=== PATIENT | female | born 1995 | race Two or more races ===

== ENCOUNTER 2018-05-29 14:33 | Inpatient (IN) | payer SELFPAY ==
[~2018-05-29] VITALS: Ht 157.5 cm; Wt 99.8 kg
--- NOTE | 2018-05-29 15:00 | PHYS DOC ---
Adult General Chief Complaint Chief Complaint: ABDOMINAL PAIN HPI HPI Patient is a 23 year old female who presents to the ED today complaining of moderate right upper quadrant abdominal pain as well as epigastric pain that began yesterday and has gotten worse by the time she woke up this morning. Patient is also complaining of nausea with no vomiting. Denies any fever. She states she has been diagnosed with gallstones before. Denies any diarrhea. Denies any chance she is . Review of Systems Review of Systems Constitutional: Denies fever or chills [] Eyes: Denies change in visual acuity, redness, or eye pain [] HENT: Denies nasal congestion or sore throat [] Respiratory: Denies cough or shortness of breath [] Cardiovascular: No additional information not addressed in HPI [] GI: Reports right upper quadrant abdominal pain with nausea, denies vomiting, bloody stools or diarrhea [] : Denies dysuria or hematuria [] Musculoskeletal: Denies back pain or joint pain [] Integument: Denies rash or skin lesions [] Neurologic: Denies headache, focal weakness or sensory changes [] All other systems were reviewed and found to be within normal limits, except as documented in this note. Current Medications Current Medications Current Medications Medications (Trade) Dose Ordered Sig/Mona Start Time Stop Time Status Last Admin Dose Admin Famotidine (Pepcid Vial) 20 mg 1X ONCE 05/29/18 15:30 05/29/18 15:31 DC 05/29/18 15:25 20 MG Fentanyl Citrate (Fentanyl 2ml Vial) 50 mcg 1X ONCE 05/29/18 16:00 05/29/18 16:01 DC 05/29/18 15:59 50 MCG Hydromorphone HCl (Dilaudid) 1 mg 1X ONCE 05/29/18 16:30 05/29/18 16:31 Ondansetron HCl (Zofran) 4 mg 1X ONCE 05/29/18 15:30 05/29/18 15:31 DC 05/29/18 15:25 4 MG Sodium Chloride 1,000 ml @ 1,000 mls/hr 1X ONCE 05/29/18 15:30 05/29/18 16:29 05/29/18 15:26 1,000 MLS/HR Allergies Allergies Allergies Coded Allergies Type Severity Reaction Last Updated Verified No Known Drug Allergies 05/29/18 No Physical Exam Physical Exam Constitutional: Well developed, well nourished, no acute distress, non-toxic appearance. [] HENT: Normocephalic, atraumatic, bilateral external ears normal, oropharynx moist, no oral exudates, nose normal. [] Eyes: PERRLA, EOMI, conjunctiva normal, no discharge. [] Neck: Normal range of motion, no tenderness, supple, no stridor. [] Cardiovascular:Heart rate regular rhythm, no murmur [] Lungs & Thorax: Bilateral breath sounds clear to auscultation [] Abdomen: Bowel sounds normal, soft, moderate epigastric as well as right upper quadrant tenderness with positive Mendes sign, no right lower quadrant tenderness, negative psoas sign, negative obturator sign, patient is guarding her right upper quadrant no masses, no pulsatile masses. [] Skin: Warm, dry, no erythema, no rash. [] Back: No tenderness, no CVA tenderness. [] Extremities: No tenderness, no cyanosis, no clubbing, ROM intact, no edema. [] Neurologic: Alert and oriented X 3, normal motor function, normal sensory function, no focal deficits noted. [] Psychologic: Affect normal, judgement normal, mood normal. [] Current Patient Data Vital Signs Vital Signs Date Time Temp Pulse Resp B/P (MAP) Pulse Ox O2 Delivery O2 Flow Rate FiO2 05/29/18 15:59 22 98 Room Air 05/29/18 15:35 98.6 83 157/74 (101) 98.6 Lab Values Laboratory Tests Test 05/29/18 14:50 05/29/18 15:09 05/29/18 15:35 Urine Collection Type Unknown Urine Color Yellow Urine Clarity Clear Urine pH 5.5 Urine Specific [place] >=1.030 Urine Protein Negative mg/dL (NEG-TRACE) Urine Glucose (UA) Negative mg/dL (NEG) Urine Ketones (Stick) Negative mg/dL (NEG) Urine Blood Small (NEG) Urine Nitrite Negative (NEG) Urine Bilirubin Negative (NEG) Urine Urobilinogen Dipstick 0.2 mg/dL (0.2 mg/dL) Urine Leukocyte Esterase Trace (NEG) Urine RBC 3-5 /HPF (0-2) Urine WBC 1-4 /HPF (0-4) Urine Squamous Epithelial Cells Mod /LPF Urine Bacteria Few /HPF (0-FEW) Urine Mucus Marked /LPF Urine Opiates Screen Neg (NEG) Urine Methadone Screen Neg (NEG) Urine Barbiturates Neg (NEG) Urine Phencyclidine Screen Neg (NEG) Urine Amphetamine/Methamphetamine Neg (NEG) Urine Benzodiazepines Screen Neg (NEG) Urine Cocaine Screen Neg (NEG) Urine Cannabinoids Screen Neg (NEG) Urine Ethyl Alcohol Neg (NEG) POC Urine HCG, Qualitative Hcg negative (Negative) White Blood Count 7.0 x10^3/uL (4.0-11.0) Red Blood Count 4.30 x10^6/uL (3.50-5.40) Hemoglobin 12.0 g/dL (12.0-15.5) Hematocrit 36.7 % (36.0-47.0) Mean Corpuscular Volume 85 fL (79-100) Mean Corpuscular Hemoglobin 28 pg (25-35) Mean Corpuscular Hemoglobin Concent 33 g/dL (31-37) Red Cell Distribution Width 14.1 % (11.5-14.5) Platelet Count 198 x10^3/uL (140-400) Neutrophils (%) (Auto) 65 % (31-73) Lymphocytes (%) (Auto) 27 % (24-48) Monocytes (%) (Auto) 6 % (0-9) Eosinophils (%) (Auto) 1 % (0-3) Basophils (%) (Auto) 1 % (0-3) Neutrophils # (Auto) 4.6 x10^3uL (1.8-7.7) Lymphocytes # (Auto) 1.9 x10^3/uL (1.0-4.8) Monocytes # (Auto) 0.4 x10^3/uL (0.0-1.1) Eosinophils # (Auto) 0.1 x10^3/uL (0.0-0.7) Basophils # (Auto) 0.1 x10^3/uL (0.0-0.2) Sodium Level 143 mmol/L (136-145) Potassium Level 3.6 mmol/L (3.5-5.1) Chloride Level 105 mmol/L (98-107) Carbon Dioxide Level 22 mmol/L (21-32) Anion Gap 16 (6-14) H Blood Urea Nitrogen 9 mg/dL (7-20) Creatinine 0.7 mg/dL (0.6-1.0) Estimated GFR (Cockcroft-Gault) 103.7 BUN/Creatinine Ratio 13 (6-20) Glucose Level 99 mg/dL (70-99) Calcium Level 8.9 mg/dL (8.5-10.1) Total Bilirubin 0.2 mg/dL (0.2-1.0) Aspartate Amino Transferase (AST) 17 U/L (15-37) Alanine Aminotransferase (ALT) 31 U/L (14-59) Alkaline Phosphatase 101 U/L (46-116) Total Protein 7.8 g/dL (6.4-8.2) Albumin 3.7 g/dL (3.4-5.0) Albumin/Globulin Ratio 0.9 (1.0-1.7) L Lipase 128 U/L (73-393) Ethyl Alcohol Level < 10 mg/dL (0-10) Laboratory Tests 05/29/18 15:35 Laboratory Tests 05/29/18 15:35 EKG EKG [] Radiology/Procedures Radiology/Procedures []PROCEDURE: ABDOMEN LTD Limited abdomen ultrasound study of the right upper quadrant Clinical indications: Right upper quadrant abdominal pain. FINDINGS: The pancreas and IVC and abdominal aorta are obscured by overlying bowel gas. There is severe attenuation of sound throughout the liver which may be seen with fatty infiltration of the liver. This limits sonographic evaluation of the liver for focal hepatic masses. The liver measures 18.4 cm in length which is mildly enlarged. Mild biliary sludge is seen within the gallbladder. There is an 11 mm gallstone within the fundus of the gallbladder. No gallbladder wall thickening is seen. The gallbladder is distended measuring up to 12.7 cm in length. The extra hepatic bile duct measures 4.5 mm in caliber which is normal. The length of the right kidney is 12.5 cm. No hydronephrosis or renal mass or perinephric fluid collection is seen on the right side. IMPRESSION: Cholelithiasis and gallbladder distention. Mild hepatomegaly. Fatty infiltration of the liver. Electronically signed by: Jeet Rae MD (05/29/2018 3:42 PM) [facility] DICTATED and SIGNED BY: JEET RAE MD DATE: 05/29/18 1542 Course & Med Decision Making Course & Med Decision Making Pertinent Labs and Imaging studies reviewed. (See chart for details) This is a 23-year-old female patient presenting to the ED today with right upper quadrant abdominal pain that began this yesterday and got worse this morning. CBC CMP lipase with no acute findings, right upper quadrant ultrasound was noted for cholelithiasis and gallbladder distention. Patient has been in moderate pain since arrival to the ED. Consulted with Dr. Hobbs who requested we admit patient under the hospitalist and keep patient nothing by mouth. Spoke with Dr. Benitez who accepted patient for admission. Dragon Disclaimer Dragon Disclaimer This electronic medical record was generated, in whole or in part, using a voice recognition dictation system. Departure Departure Impression: Primary Impression: Cholelithiasis Additional Impression: Intractable abdominal pain Disposition: ADMITTED INPATIENT Condition: STABLE Referrals: GEMINI ASCENCIO MD (PCP) Problem Qualifiers Primary Impression: Cholelithiasis Cholelithiasis location: gallbladder Cholecystitis presence: without cholecystitis Biliary obstruction: without biliary obstruction Qualified Codes: K80.20 - Calculus of gallbladder without cholecystitis without obstruction ANA MATSON TEST PILOT May 29, 2018 15:00
[2018-05-29 15:22] LABS: BILIRUBIN,URINE NEGATIVE (NEG); CLARITY,URINE CLEAR; COLOR,URINE YELLOW; NITRITE,URINE NEGATIVE (NEG); PH,URINE 5.5; PROTEIN,URINE NEGATIVE (NEG-TRACE); UROBILINOGEN,URINE 0.2 mg/dL (0.2 mg/dL)
[2018-05-29] MEDS ORDERED: ONDANSETRON PF 4 MG/2 ML VIAL. IV ONE (15:30)
[2018-05-29] MEDS ORDERED: fentaNYL PF VIAL 100 MCG/2 ML VIAL IV ONE ×2 (15:30→16:00)
[2018-05-29] MEDS ORDERED: IV NORMAL SALINE 1000ML BAG 1,000 ML IV ONE ×2 (15:30→16:30)
[2018-05-29] MEDS ORDERED: FAMOTIDINE 20 MG/2 ML VIAL IVP ONE (15:30)
[2018-05-29 15:32] LABS: BARBITURATES NEG (NEG); BENZODIAZEPINES NEG (NEG); CANNABINOIDS NEG (NEG); COCAINE NEG (NEG); METHADONE NEG (NEG); OPIATES NEG (NEG); PHENCYCLIDINE NEG (NEG)
[2018-05-29 15:33] LABS: SQUAMOUS EPITHELIAL CELL,UR MOD /LPF
[2018-05-29 15:34] LABS: BACTERIA,URINE FEW /HPF (0-FEW)
[2018-05-29 15:36] LABS: AMPHETAMINE/METHAMPHETAMINE NEG (NEG)
--- NOTE | 2018-05-29 15:45 | RAD ---
Limited abdomen ultrasound study of the right upper quadrant Clinical indications: Right upper quadrant abdominal pain. FINDINGS: The pancreas and IVC and abdominal aorta are obscured by overlying bowel gas. There is severe attenuation of sound throughout the liver which may be seen with fatty infiltration of the liver. This limits sonographic evaluation of the liver for focal hepatic masses. The liver measures 18.4 cm in length which is mildly enlarged. Mild biliary sludge is seen within the gallbladder. There is an 11 mm gallstone within the fundus of the gallbladder. No gallbladder wall thickening is seen. The gallbladder is distended measuring up to 12.7 cm in length. The extra hepatic bile duct measures 4.5 mm in caliber which is normal. The length of the right kidney is 12.5 cm. No hydronephrosis or renal mass or perinephric fluid collection is seen on the right side. IMPRESSION: Cholelithiasis and gallbladder distention. Mild hepatomegaly. Fatty infiltration of the liver. Electronically signed by: Clyde Rae MD (05/29/2018 3:42 PM) [facility]
[2018-05-29 15:46] LABS: BASO # 0.1 x10^3/uL (0.0-0.2); BASO % 1 % (0-3); EOS # 0.1 x10^3/uL (0.0-0.7); EOS % 1 % (0-3); HEMATOCRIT 36.7 % (36.0-47.0); LYMPH # 1.9 x10^3/uL (1.0-4.8); LYMPH % 27 % (24-48); MEAN CORPUSCULAR HEMOGLOBIN 28 pg (25-35); MEAN CORPUSCULAR HGB CONC 33 g/dL (31-37); MEAN CORPUSCULAR VOLUME 85 fL (79-100); MONO # 0.4 x10^3/uL (0.0-1.1); MONO % 6 % (0-9); NEUT # 4.6 x10^3uL (1.8-7.7); NEUT % 65 % (31-73); PLATELET COUNT 198 x10^3/uL (140-400); RED CELL DISTRIBUTION WIDTH 14.1 % (11.5-14.5)
[2018-05-29 15:52] LABS: CALCIUM 8.9 mg/dL (8.5-10.1); CREATININE 0.7 mg/dL (0.6-1.0); GFR 103.7; POTASSIUM 3.6 mmol/L (3.5-5.1)
[2018-05-29 15:59] LABS: ALBUMIN 3.7 g/dL (3.4-5.0); ALBUMIN/GLOBULIN RATIO 0.9 (1.0-1.7); TOTAL BILIRUBIN 0.2 mg/dL (0.2-1.0); TOTAL PROTEIN 7.8 g/dL (6.4-8.2)
[2018-05-29] MEDS ORDERED: ACETAMINOPHEN 650 MG SUPP.RECT. PR PRN (16:30)
[2018-05-29] MEDS ORDERED: ONDANSETRON PF 4 MG/2 ML VIAL. IV PRN (16:30)
[2018-05-29] MEDS ORDERED: cloNIDine HCL 0.1 MG TABLET PO PRN (16:30)
[2018-05-29] MEDS ORDERED: HYDROmorphone 2 MG/ML VIAL IV ONE (16:30)
[2018-05-29] MEDS ORDERED: diphenhydrAMINE 50 MG/ML VIAL IVP PRN (16:30)
[2018-05-29] MEDS ORDERED: ZOLPIDEM 5 MG TABLET. PO PRN (16:30)
[2018-05-29] MEDS ORDERED: ALBUTEROL SULFATE 2.5 MG/3 ML NEBU. NEB PRN (16:30)
[2018-05-29] MEDS ORDERED: DOCUSATE SODIUM 100 MG CAPSULE. PO PRN (16:30)
[2018-05-29] MEDS ORDERED: ACETAMINOPHEN 325 MG TABLET. PO PRN (16:30)
[2018-05-29] MEDS: IPRATRPIUM/ALBUTEROL 0.5/2.5MG 3 ML NEBU. NEB SCH ×2 (16:49→20:18)
--- NOTE | 2018-05-29 17:51 | PDOC1 ---
History and Physical Date of Admission Date of Admission 05/29/2018 Identification/Chief Complaint Chief Complaint edinson limon Problems: (1) Intractable abdominal pain (2) Cholelithiasis Source Source: Chart review, Patient History of Present Illness History of Present Illness Patient is a 23 luiz rold female wtih no apst medical history except for cholelithiasis which was diagnosed about 3 months prior to her admission. Sh ecomes today with a 24hour history fo right upper quadrant pain with radiation to the back, sharp in nature which started at a 2 out of 10 intnessity and has progressed to 10 out of 10 intensity, no fever or chills reported, no nausea or vomiting reported. She denies dietary transgression, she was found to have distended gallbladder on US reason why we were asked to see patient in consultation. She is tender upon palpation, Mendes is equivocal. She tamayo snot have rebound or guarding at the time of my evaluation, plan of care discussed in detail . Current Problem List Problem List Problems Medical Problems: (1) Cholelithiasis Status: Acute (2) Intractable abdominal pain Status: Acute Current Medications Current Medications Current Medications Medications (Trade) Dose Ordered Sig/Mona Start Time Stop Time Status Last Admin Dose Admin Acetaminophen (Tylenol Supp) 650 mg PRN Q4HRS PRN 05/29/18 16:30 Acetaminophen (Tylenol) 650 mg PRN Q4HRS PRN 05/29/18 16:30 Albuterol Sulfate (Ventolin Neb Soln) 2.5 mg PRN Q4HRS PRN 05/29/18 16:30 Albuterol/ Ipratropium (Duoneb) 3 ml Q4H 05/29/18 16:30 05/29/18 16:49 3 ML Cefazolin Sodium/ Dextrose 50 ml @ 100 mls/hr 1X PREOP 05/29/18 17:15 Clonidine HCl (Catapres) 0.1 mg PRN Q6HRS PRN 05/29/18 16:30 Diphenhydramine HCl (Benadryl) 25 mg PRN Q4HRS PRN 05/29/18 16:30 Docusate Sodium (Colace) 100 mg PRN BID PRN 05/29/18 16:30 Famotidine (Pepcid Vial) 20 mg 1X ONCE 05/29/18 15:30 05/29/18 15:31 DC 05/29/18 15:25 20 MG Fentanyl Citrate (Fentanyl 2ml Vial) 50 mcg 1X ONCE 05/29/18 16:00 05/29/18 16:01 DC 05/29/18 15:59 50 MCG Hydromorphone HCl (Dilaudid) 1 mg 1X ONCE 05/29/18 16:30 05/29/18 16:31 DC 05/29/18 16:33 1 MG Lorazepam (Ativan) 2 mg PRN Q4HRS PRN 05/29/18 16:30 Morphine Sulfate (Morphine Sulfate) 2 mg PRN Q3HRS PRN 05/29/18 16:30 Ondansetron HCl (Zofran) 4 mg PRN Q4HRS PRN 05/29/18 16:30 Sodium Chloride 1,000 ml @ 100 mls/hr 1X ONCE 05/29/18 16:30 05/30/18 02:29 05/29/18 16:30 100 MLS/HR Zolpidem Tartrate (Ambien) 5 mg PRN QHS PRN 05/29/18 16:30 Allergies Allergies Allergies Coded Allergies Type Severity Reaction Last Updated Verified No Known Drug Allergies 05/29/18 No ROS Review of System CONSTITUTIONAL: No fever or chills EYES: No recent changes SKIN: No rash or itching CARDIOVASCULAR: No chest pain, syncope, palpitations, or edema RESPIRATORY: No SOB or cough GASTROINTESTINAL: No nausea, vomiting or abdominal pain NEUROLOGICAL: No headaches or weakness ENDOCRINE: No cold or heat intolerance GENITOURINARY: No urgency or frequency of urination MUSCULOSKELETAL: No back pain or joint pain LYMPHATICS: No enlarged lymph nodes PSYCHIATRIC: No anxiety or depression Physical Exam Physical Exam GEN.: No apparent distress. Alert and oriented. HEENT: Head is normocephalic, atraumatic NECK: Supple. LUNGS: Clear to auscultation. HEART: RRR, S1, S2 present. Peripheral pulses intact ABDOMEN: Soft, nontender. Positive bowel sounds. EXTREMITIES: Without any cyanosis. NEUROLOGIC: Normal speech, normal tone PSYCHIATRIC: Normal affect, normal mood. SKIN: No ulcerations Vitals Vitals Vital Signs Date Time Temp Pulse Resp B/P (MAP) Pulse Ox O2 Delivery O2 Flow Rate FiO2 05/29/18 16:54 99 Room Air 05/29/18 16:34 81 24 140/84 (102) 05/29/18 15:35 98.6 98.6 Labs Labs Laboratory Tests Test 05/29/18 14:50 05/29/18 15:09 05/29/18 15:35 Urine Collection Type Unknown Urine Color Yellow Urine Clarity Clear Urine pH 5.5 Urine Specific [place] >=1.030 Urine Protein Negative mg/dL (NEG-TRACE) Urine Glucose (UA) Negative mg/dL (NEG) Urine Ketones (Stick) Negative mg/dL (NEG) Urine Blood Small (NEG) Urine Nitrite Negative (NEG) Urine Bilirubin Negative (NEG) Urine Urobilinogen Dipstick 0.2 mg/dL (0.2 mg/dL) Urine Leukocyte Esterase Trace (NEG) Urine RBC 3-5 /HPF (0-2) Urine WBC 1-4 /HPF (0-4) Urine Squamous Epithelial Cells Mod /LPF Urine Bacteria Few /HPF (0-FEW) Urine Mucus Marked /LPF Urine Opiates Screen Neg (NEG) Urine Methadone Screen Neg (NEG) Urine Barbiturates Neg (NEG) Urine Phencyclidine Screen Neg (NEG) Urine Amphetamine/Methamphetamine Neg (NEG) Urine Benzodiazepines Screen Neg (NEG) Urine Cocaine Screen Neg (NEG) Urine Cannabinoids Screen Neg (NEG) Urine Ethyl Alcohol Neg (NEG) Bedside Urine HCG, Qualitative Hcg negative (Negative) White Blood Count 7.0 x10^3/uL (4.0-11.0) Red Blood Count 4.30 x10^6/uL (3.50-5.40) Hemoglobin 12.0 g/dL (12.0-15.5) Hematocrit 36.7 % (36.0-47.0) Mean Corpuscular Volume 85 fL (79-100) Mean Corpuscular Hemoglobin 28 pg (25-35) Mean Corpuscular Hemoglobin Concent 33 g/dL (31-37) Red Cell Distribution Width 14.1 % (11.5-14.5) Platelet Count 198 x10^3/uL (140-400) Neutrophils (%) (Auto) 65 % (31-73) Lymphocytes (%) (Auto) 27 % (24-48) Monocytes (%) (Auto) 6 % (0-9) Eosinophils (%) (Auto) 1 % (0-3) Basophils (%) (Auto) 1 % (0-3) Neutrophils # (Auto) 4.6 x10^3uL (1.8-7.7) Lymphocytes # (Auto) 1.9 x10^3/uL (1.0-4.8) Monocytes # (Auto) 0.4 x10^3/uL (0.0-1.1) Eosinophils # (Auto) 0.1 x10^3/uL (0.0-0.7) Basophils # (Auto) 0.1 x10^3/uL (0.0-0.2) Sodium Level 143 mmol/L (136-145) Potassium Level 3.6 mmol/L (3.5-5.1) Chloride Level 105 mmol/L (98-107) Carbon Dioxide Level 22 mmol/L (21-32) Anion Gap 16 (6-14) Blood Urea Nitrogen 9 mg/dL (7-20) Creatinine 0.7 mg/dL (0.6-1.0) Estimated GFR (Cockcroft-Gault) 103.7 BUN/Creatinine Ratio 13 (6-20) Glucose Level 99 mg/dL (70-99) Calcium Level 8.9 mg/dL (8.5-10.1) Total Bilirubin 0.2 mg/dL (0.2-1.0) Aspartate Amino Transf (AST/SGOT) 17 U/L (15-37) Alanine Aminotransferase (ALT/SGPT) 31 U/L (14-59) Alkaline Phosphatase 101 U/L (46-116) Total Protein 7.8 g/dL (6.4-8.2) Albumin 3.7 g/dL (3.4-5.0) Albumin/Globulin Ratio 0.9 (1.0-1.7) Lipase 128 U/L (73-393) Ethyl Alcohol Level < 10 mg/dL (0-10) Laboratory Tests Test 05/29/18 14:50 05/29/18 15:09 05/29/18 15:35 Urine Collection Type Unknown Urine Color Yellow Urine Clarity Clear Urine pH 5.5 Urine Specific [place] >=1.030 Urine Protein Negative mg/dL (NEG-TRACE) Urine Glucose (UA) Negative mg/dL (NEG) Urine Ketones (Stick) Negative mg/dL (NEG) Urine Blood Small (NEG) Urine Nitrite Negative (NEG) Urine Bilirubin Negative (NEG) Urine Urobilinogen Dipstick 0.2 mg/dL (0.2 mg/dL) Urine Leukocyte Esterase Trace (NEG) Urine RBC 3-5 /HPF (0-2) Urine WBC 1-4 /HPF (0-4) Urine Squamous Epithelial Cells Mod /LPF Urine Bacteria Few /HPF (0-FEW) Urine Mucus Marked /LPF Urine Opiates Screen Neg (NEG) Urine Methadone Screen Neg (NEG) Urine Barbiturates Neg (NEG) Urine Phencyclidine Screen Neg (NEG) Urine Amphetamine/Methamphetamine Neg (NEG) Urine Benzodiazepines Screen Neg (NEG) Urine Cocaine Screen Neg (NEG) Urine Cannabinoids Screen Neg (NEG) Urine Ethyl Alcohol Neg (NEG) Bedside Urine HCG, Qualitative Hcg negative (Negative) White Blood Count 7.0 x10^3/uL (4.0-11.0) Red Blood Count 4.30 x10^6/uL (3.50-5.40) Hemoglobin 12.0 g/dL (12.0-15.5) Hematocrit 36.7 % (36.0-47.0) Mean Corpuscular Volume 85 fL (79-100) Mean Corpuscular Hemoglobin 28 pg (25-35) Mean Corpuscular Hemoglobin Concent 33 g/dL (31-37) Red Cell Distribution Width 14.1 % (11.5-14.5) Platelet Count 198 x10^3/uL (140-400) Neutrophils (%) (Auto) 65 % (31-73) Lymphocytes (%) (Auto) 27 % (24-48) Monocytes (%) (Auto) 6 % (0-9) Eosinophils (%) (Auto) 1 % (0-3) Basophils (%) (Auto) 1 % (0-3) Neutrophils # (Auto) 4.6 x10^3uL (1.8-7.7) Lymphocytes # (Auto) 1.9 x10^3/uL (1.0-4.8) Monocytes # (Auto) 0.4 x10^3/uL (0.0-1.1) Eosinophils # (Auto) 0.1 x10^3/uL (0.0-0.7) Basophils # (Auto) 0.1 x10^3/uL (0.0-0.2) Sodium Level 143 mmol/L (136-145) Potassium Level 3.6 mmol/L (3.5-5.1) Chloride Level 105 mmol/L (98-107) Carbon Dioxide Level 22 mmol/L (21-32) Anion Gap 16 (6-14) Blood Urea Nitrogen 9 mg/dL (7-20) Creatinine 0.7 mg/dL (0.6-1.0) Estimated GFR (Cockcroft-Gault) 103.7 BUN/Creatinine Ratio 13 (6-20) Glucose Level 99 mg/dL (70-99) Calcium Level 8.9 mg/dL (8.5-10.1) Total Bilirubin 0.2 mg/dL (0.2-1.0) Aspartate Amino Transf (AST/SGOT) 17 U/L (15-37) Alanine Aminotransferase (ALT/SGPT) 31 U/L (14-59) Alkaline Phosphatase 101 U/L (46-116) Total Protein 7.8 g/dL (6.4-8.2) Albumin 3.7 g/dL (3.4-5.0) Albumin/Globulin Ratio 0.9 (1.0-1.7) Lipase 128 U/L (73-393) Ethyl Alcohol Level < 10 mg/dL (0-10) VTE Prophylaxis Ordered VTE Prophylaxis Devices: Yes VTE Pharmacological Prophylaxi: No Assessment/Plan Assessment/Plan Abdominal pain secondary to biliary colic Cholelithiasis morbid obesity with bmi of 40 plan; consult surgery keep npo iv fluids pain management dvt prohylaxis: scd and teds Problem Qualifiers (1) Cholelithiasis: Cholelithiasis location: gallbladder Cholecystitis presence: without cholecystitis Biliary obstruction: without biliary obstruction Qualified Codes: K80.20 - Calculus of gallbladder without cholecystitis without obstruction MALIA DEVI MD May 29, 2018 17:51
[2018-05-29] MEDS: MORPHINE SULFATE 2 MG/ML VIAL. IV PRN ×2 (18:45→22:26)
[2018-05-29 19:00] VITALS: BP 149/101
[2018-05-29] MEDS ORDERED: IPRATRPIUM/ALBUTEROL 0.5/2.5MG 3 ML NEBU. NEB PRN (21:00)
[2018-05-29] MEDS ORDERED: MORPHINE SULFATE 2 MG/ML VIAL. IV ONE (21:00)
[2018-05-29] MEDS: IV NORMAL SALINE 1000ML BAG 1,000 ML IV SCH (21:04)
[2018-05-29 23:00] VITALS: BP 135/55
[2018-05-30] VITALS (11 sets, daily range): BP systolic 105–143; BP diastolic 60–83
[2018-05-30] MEDS: MORPHINE SULFATE 2 MG/ML VIAL. IV PRN ×3 (03:32→14:29)
[2018-05-30] MEDS: IV NORMAL SALINE 1000ML BAG 1,000 ML IV SCH ×4 (03:33→22:29)
[2018-05-30 07:59] LABS: BASO % 0 % (0-3); EOS % 0 % (0-3); HEMATOCRIT 36.1 % (36.0-47.0); HEMOGLOBIN 11.9 g/dL (12.0-15.5); LYMPH # 1.3 x10^3/uL (1.0-4.8); LYMPH % 13 % (24-48); MEAN CORPUSCULAR HEMOGLOBIN 28 pg (25-35); MEAN CORPUSCULAR HGB CONC 33 g/dL (31-37); MEAN CORPUSCULAR VOLUME 86 fL (79-100); MONO # 0.5 x10^3/uL (0.0-1.1); MONO % 5 % (0-9); NEUT # 7.9 x10^3uL (1.8-7.7); NEUT % 81 % (31-73); PLATELET COUNT 182 x10^3/uL (140-400); RED BLOOD COUNT 4.22 x10^6/uL (3.50-5.40); RED CELL DISTRIBUTION WIDTH 13.9 % (11.5-14.5); WHITE BLOOD COUNT 9.7 x10^3/uL (4.0-11.0)
[2018-05-30] MEDS ORDERED: HYDROmorphone 2 MG/ML VIAL IV ONE (08:00)
[2018-05-30] MEDS ORDERED: MORPHINE SULFATE 2 MG/ML VIAL. IV PRN ×2 (08:00→10:00)
--- NOTE | 2018-05-30 08:19 | PDOC2 ---
ZEB CARRION Didi LAST TURNER 05/30/18 0819: CONSULT Date of Consult Date of Consult DATE: 05/30/18 TIME: 08:15 Reason for Consult Reason for Consult: cholelithiasis Referring Physician Referring Physician: ER Identification/Chief Complaint Chief Complaint abdominal pain Source Source: Chart review, Patient History of Present Illness Reason for Visit: Reports RUQ pain that radiates to back, started 2 days ago. Yesterday became significantly worse. Associated nausea and emesis. Similar symptoms prior, however not this severe. Past Medical History Past Medical History no pertinent medical hx Past Surgical History Past Surgical History: No pertinent history Family History Family History: Other (noncontributory to current illness ) Social History No ALCOHOL: none Drugs: None Lives: with Family Current Problem List Problem List Problems Medical Problems: (1) Cholelithiasis Status: Acute (2) Intractable abdominal pain Status: Acute Current Medications Current Medications Current Medications Sodium Chloride 1,000 ml @ 1,000 mls/hr 1X ONCE IV Last administered on 15:26; Start 05/29/18 at 15:30; Stop 05/29/18 at 16:29; Status DC Famotidine (Pepcid Vial) 20 mg 1X ONCE IVP Last administered on 05/29/18at 15: 25; Start 05/29/18 at 15:30; Stop 05/29/18 at 15:31; Status DC Ondansetron HCl (Zofran) 4 mg 1X ONCE IV Last administered on 05/29/18at 15:25 ; Start 05/29/18 at 15:30; Stop 05/29/18 at 15:31; Status DC Fentanyl Citrate (Fentanyl 2ml Vial) 50 mcg 1X ONCE IV Last administered on 12/07at 15:26; Start 05/29/18 at 15:30; Stop 05/29/18 at 15:31; Status DC Fentanyl Citrate (Fentanyl 2ml Vial) 50 mcg 1X ONCE IV Last administered on 12/07at 15:59; Start 05/29/18 at 16:00; Stop 05/29/18 at 16:01; Status DC Hydromorphone HCl (Dilaudid) 1 mg 1X ONCE IV Last administered on 05/29/18at 16 :33; Start 05/29/18 at 16:30; Stop 05/29/18 at 16:31; Status DC Sodium Chloride 1,000 ml @ 100 mls/hr Q10H IV Last administered on 05/30/18 03:33; Start 05/29/18 at 16:29 Ondansetron HCl (Zofran) 4 mg PRN Q4HRS PRN IV NAUSEA/VOMITING Last administered on 05/29/18 18:45; Start 05/29/18 at 16:30 Zolpidem Tartrate (Ambien) 5 mg PRN QHS PRN PO INSOMNIA Last administered on 23:53; Start 05/29/18 at 16:30 Acetaminophen (Tylenol) 650 mg PRN Q4HRS PRN PO TEMP OVER 100.4F OR MILD PAIN Last administered on 05/29/18 19:45; Start 05/29/18 at 16:30 Acetaminophen (Tylenol Supp) 650 mg PRN Q4HRS PRN OK TEMP OVER 100.4F OR MILD PAIN; Start 05/29/18 at 16:30 Clonidine HCl (Catapres) 0.1 mg PRN Q6HRS PRN PO SBP>160 OR DBP>90; Start 05/29 at 16:30 Diphenhydramine HCl (Benadryl) 25 mg PRN Q4HRS PRN IVP ITCHING; Start 05/29/18 at 16:30 Docusate Sodium (Colace) 100 mg PRN BID PRN PO CONSTIPATION; Start 05/29/18 at 16:30 Albuterol Sulfate (Ventolin Neb Soln) 2.5 mg PRN Q4HRS PRN NEB SHORTNESS OF BREATH; Start 05/29/18 at 16:30 Albuterol/ Ipratropium (Duoneb) 3 ml Q4H NEB Last administered on 05/29/18 16: 49; Start 05/29/18 at 16:30; Stop 05/29/18 at 20:56; Status DC Lorazepam (Ativan) 2 mg PRN Q4HRS PRN IV ANXIETY / AGITATION Last administered on 05/29/18 23:54; Start 05/29/18 at 16:30 Morphine Sulfate (Morphine Sulfate) 2 mg PRN Q3HRS PRN IV severe pain Last administered on 05/30/18 06:29; Start 05/29/18 at 16:30; Stop 05/30/18 at 07:53 ; Status DC Sodium Chloride 1,000 ml @ 100 mls/hr 1X ONCE IV Last administered on at 16:30; Start 05/29/18 at 16:30; Stop 05/30/18 at 02:29; Status DC Cefazolin Sodium/ Dextrose 50 ml @ 100 mls/hr 1X PREOP IV ; Start 05/29/18 at 17:15; Stop 05/29/18 at 19:22; Status DC Cefazolin Sodium/ Dextrose 50 ml @ 100 mls/hr 1X PREOP IV ; Start 05/30/18 at 06:00 Albuterol/ Ipratropium (Duoneb) 3 ml PRN Q4HRS PRN NEB SHORTNESS OF BREATH; Start 05/29/18 at 21:00; Stop 05/29/18 at 21:00; Status DC Morphine Sulfate (Morphine Sulfate) 2 mg 1X ONCE IV Last administered on at 21:43; Start 05/29/18 at 21:00; Stop 05/29/18 at 21:01; Status DC Morphine Sulfate (Morphine Sulfate) 2 mg PRN Q2HR PRN IV severe pain; Start 01/07 at 08:00 Hydromorphone HCl (Dilaudid) 0.4 mg 1X ONCE IV ; Start 05/30/18 at 08:00; Stop 05/30/18 at 08:01; Status DC Allergies Allergies: Coded Allergies: amoxicillin (Verified Allergy, Intermediate, Rash, 05/30/18) ROS General: YES: Chills; No: Other (fevers ) PSYCHOLOGICAL ROS: No: Anxiety, Depression Eyes: No Blurry vision, No Double vision HEENT: No: Heacaches, Sore Throat Hematological and Lymphatic: No: Bleeding Problems, Blood Clots Respiratory: YES: Shortness of breath; No: Cough Cardiovascular: yes Chest Pain; No Palpitations Gastrointestinal: Yes Other (see hpi) Genitourinary: No Dysuria, No Hematuria Musculoskeletal: No Joint Pain, No Muscle Pain Neurological: No Confusion, No Impaired Coord/balance Skin: No Pruritus, No Rash Physical Exam General: Alert, Oriented X3, Cooperative, No acute distress HEENT: PERRLA, Mucous membr. moist/pink Lungs: Clear to auscultation, Normal air movement Heart: Regular rate, Normal S1, Normal S2, No murmurs Abdomen: Soft, Other (ND, TTP upper abdomen ) Extremities: No clubbing, No cyanosis Skin: No rashes, No breakdown Neuro: Normal gait, Normal speech Psych/Mental Status: Mental status NL, Mood NL MUSCULOSKELETAL: No deformity, No swelling Vitals VITALS Vital Signs Date Time Temp Pulse Resp B/P (MAP) Pulse Ox O2 Delivery O2 Flow Rate FiO2 05/30/18 07:37 99 Room Air 05/30/18 03:00 98.6 80 18 120/60 (80) 98.6 Labs Labs Laboratory Tests Test 05/29/18 14:50 05/29/18 15:09 05/29/18 15:35 05/30/18 06:07 Urine Collection Type Unknown Urine Color Yellow Urine Clarity Clear Urine pH 5.5 Urine Specific [place] >=1.030 Urine Protein Negative mg/dL (NEG-TRACE) Urine Glucose (UA) Negative mg/dL (NEG) Urine Ketones (Stick) Negative mg/dL (NEG) Urine Blood Small (NEG) Urine Nitrite Negative (NEG) Urine Bilirubin Negative (NEG) Urine Urobilinogen Dipstick 0.2 mg/dL (0.2 mg/dL) Urine Leukocyte Esterase Trace (NEG) Urine RBC 3-5 /HPF (0-2) Urine WBC 1-4 /HPF (0-4) Urine Squamous Epithelial Cells Mod /LPF Urine Bacteria Few /HPF (0-FEW) Urine Mucus Marked /LPF Urine Opiates Screen Neg (NEG) Urine Methadone Screen Neg (NEG) Urine Barbiturates Neg (NEG) Urine Phencyclidine Screen Neg (NEG) Urine Amphetamine/Methamphetamine Neg (NEG) Urine Benzodiazepines Screen Neg (NEG) Urine Cocaine Screen Neg (NEG) Urine Cannabinoids Screen Neg (NEG) Urine Ethyl Alcohol Neg (NEG) Bedside Urine HCG, Qualitative Hcg negative (Negative) White Blood Count 7.0 x10^3/uL (4.0-11.0) 9.7 x10^3/uL (4.0-11.0) Red Blood Count 4.30 x10^6/uL (3.50-5.40) 4.22 x10^6/uL (3.50-5.40) Hemoglobin 12.0 g/dL (12.0-15.5) 11.9 g/dL (12.0-15.5) Hematocrit 36.7 % (36.0-47.0) 36.1 % (36.0-47.0) Mean Corpuscular Volume 85 fL (79-100) 86 fL (79-100) Mean Corpuscular Hemoglobin 28 pg (25-35) 28 pg (25-35) Mean Corpuscular Hemoglobin Concent 33 g/dL (31-37) 33 g/dL (31-37) Red Cell Distribution Width 14.1 % (11.5-14.5) 13.9 % (11.5-14.5) Platelet Count 198 x10^3/uL (140-400) 182 x10^3/uL (140-400) Neutrophils (%) (Auto) 65 % (31-73) 81 % (31-73) Lymphocytes (%) (Auto) 27 % (24-48) 13 % (24-48) Monocytes (%) (Auto) 6 % (0-9) 5 % (0-9) Eosinophils (%) (Auto) 1 % (0-3) 0 % (0-3) Basophils (%) (Auto) 1 % (0-3) 0 % (0-3) Neutrophils # (Auto) 4.6 x10^3uL (1.8-7.7) 7.9 x10^3uL (1.8-7.7) Lymphocytes # (Auto) 1.9 x10^3/uL (1.0-4.8) 1.3 x10^3/uL (1.0-4.8) Monocytes # (Auto) 0.4 x10^3/uL (0.0-1.1) 0.5 x10^3/uL (0.0-1.1) Eosinophils # (Auto) 0.1 x10^3/uL (0.0-0.7) 0.0 x10^3/uL (0.0-0.7) Basophils # (Auto) 0.1 x10^3/uL (0.0-0.2) 0.0 x10^3/uL (0.0-0.2) Sodium Level 143 mmol/L (136-145) Potassium Level 3.6 mmol/L (3.5-5.1) Chloride Level 105 mmol/L (98-107) Carbon Dioxide Level 22 mmol/L (21-32) Anion Gap 16 (6-14) Blood Urea Nitrogen 9 mg/dL (7-20) Creatinine 0.7 mg/dL (0.6-1.0) Estimated GFR (Cockcroft-Gault) 103.7 BUN/Creatinine Ratio 13 (6-20) Glucose Level 99 mg/dL (70-99) Calcium Level 8.9 mg/dL (8.5-10.1) Total Bilirubin 0.2 mg/dL (0.2-1.0) Aspartate Amino Transf (AST/SGOT) 17 U/L (15-37) Alanine Aminotransferase (ALT/SGPT) 31 U/L (14-59) Alkaline Phosphatase 101 U/L (46-116) Total Protein 7.8 g/dL (6.4-8.2) Albumin 3.7 g/dL (3.4-5.0) Albumin/Globulin Ratio 0.9 (1.0-1.7) Lipase 128 U/L (73-393) Ethyl Alcohol Level < 10 mg/dL (0-10) Laboratory Tests Test 05/29/18 14:50 05/29/18 15:09 05/29/18 15:35 05/30/18 06:07 Urine Collection Type Unknown Urine Color Yellow Urine Clarity Clear Urine pH 5.5 Urine Specific [place] >=1.030 Urine Protein Negative mg/dL (NEG-TRACE) Urine Glucose (UA) Negative mg/dL (NEG) Urine Ketones (Stick) Negative mg/dL (NEG) Urine Blood Small (NEG) Urine Nitrite Negative (NEG) Urine Bilirubin Negative (NEG) Urine Urobilinogen Dipstick 0.2 mg/dL (0.2 mg/dL) Urine Leukocyte Esterase Trace (NEG) Urine RBC 3-5 /HPF (0-2) Urine WBC 1-4 /HPF (0-4) Urine Squamous Epithelial Cells Mod /LPF Urine Bacteria Few /HPF (0-FEW) Urine Mucus Marked /LPF Urine Opiates Screen Neg (NEG) Urine Methadone Screen Neg (NEG) Urine Barbiturates Neg (NEG) Urine Phencyclidine Screen Neg (NEG) Urine Amphetamine/Methamphetamine Neg (NEG) Urine Benzodiazepines Screen Neg (NEG) Urine Cocaine Screen Neg (NEG) Urine Cannabinoids Screen Neg (NEG) Urine Ethyl Alcohol Neg (NEG) Bedside Urine HCG, Qualitative Hcg negative (Negative) White Blood Count 7.0 x10^3/uL (4.0-11.0) 9.7 x10^3/uL (4.0-11.0) Red Blood Count 4.30 x10^6/uL (3.50-5.40) 4.22 x10^6/uL (3.50-5.40) Hemoglobin 12.0 g/dL (12.0-15.5) 11.9 g/dL (12.0-15.5) Hematocrit 36.7 % (36.0-47.0) 36.1 % (36.0-47.0) Mean Corpuscular Volume 85 fL (79-100) 86 fL (79-100) Mean Corpuscular Hemoglobin 28 pg (25-35) 28 pg (25-35) Mean Corpuscular Hemoglobin Concent 33 g/dL (31-37) 33 g/dL (31-37) Red Cell Distribution Width 14.1 % (11.5-14.5) 13.9 % (11.5-14.5) Platelet Count 198 x10^3/uL (140-400) 182 x10^3/uL (140-400) Neutrophils (%) (Auto) 65 % (31-73) 81 % (31-73) Lymphocytes (%) (Auto) 27 % (24-48) 13 % (24-48) Monocytes (%) (Auto) 6 % (0-9) 5 % (0-9) Eosinophils (%) (Auto) 1 % (0-3) 0 % (0-3) Basophils (%) (Auto) 1 % (0-3) 0 % (0-3) Neutrophils # (Auto) 4.6 x10^3uL (1.8-7.7) 7.9 x10^3uL (1.8-7.7) Lymphocytes # (Auto) 1.9 x10^3/uL (1.0-4.8) 1.3 x10^3/uL (1.0-4.8) Monocytes # (Auto) 0.4 x10^3/uL (0.0-1.1) 0.5 x10^3/uL (0.0-1.1) Eosinophils # (Auto) 0.1 x10^3/uL (0.0-0.7) 0.0 x10^3/uL (0.0-0.7) Basophils # (Auto) 0.1 x10^3/uL (0.0-0.2) 0.0 x10^3/uL (0.0-0.2) Sodium Level 143 mmol/L (136-145) Potassium Level 3.6 mmol/L (3.5-5.1) Chloride Level 105 mmol/L (98-107) Carbon Dioxide Level 22 mmol/L (21-32) Anion Gap 16 (6-14) Blood Urea Nitrogen 9 mg/dL (7-20) Creatinine 0.7 mg/dL (0.6-1.0) Estimated GFR (Cockcroft-Gault) 103.7 BUN/Creatinine Ratio 13 (6-20) Glucose Level 99 mg/dL (70-99) Calcium Level 8.9 mg/dL (8.5-10.1) Total Bilirubin 0.2 mg/dL (0.2-1.0) Aspartate Amino Transf (AST/SGOT) 17 U/L (15-37) Alanine Aminotransferase (ALT/SGPT) 31 U/L (14-59) Alkaline Phosphatase 101 U/L (46-116) Total Protein 7.8 g/dL (6.4-8.2) Albumin 3.7 g/dL (3.4-5.0) Albumin/Globulin Ratio 0.9 (1.0-1.7) Lipase 128 U/L (73-393) Ethyl Alcohol Level < 10 mg/dL (0-10) Assessment/Plan Assessment/Plan cholelithiasis, cholecystitis plan lap tyron today obesity, BMI 40.2 JEANNA PEDERSON MD 05/30/18 2900: CONSULT Assessment/Plan Assessment/Plan Pt seen and examined. Agree with Ms. Carrion's note Pt with c/o severe pain yesterday, improved today, but still present dx'ed with gallstones 3 mo at [facility] abd soft, diffuse TTP, whit[place] RUQ TO OR for laparoscopic versus open cholecystectomy with cholangiogram R/R/B/A d/w pt and pt's supportive family. Risks, including, but not limited to : bleeding, infection, damage to surrounding structures, risk of anesthesia, risk of open. They appear to understand, their questions are answered and they elect to proceed. Thanks for consult! ZEB CARRION APRN May 30, 2018 08:19 JEANNA PEDERSON MD May 30, 2018 09:31
[2018-05-30 08:24] LABS: CALCIUM 8.5 mg/dL (8.5-10.1); CREATININE 0.6 mg/dL (0.6-1.0); GFR 123.9; POTASSIUM 3.6 mmol/L (3.5-5.1)
[2018-05-30] MEDS ORDERED: BUPIVAC MPF-EPI 0.5%-1:200000 30 ML VIAL. ONE (08:48)
[2018-05-30] MEDS ORDERED: HEPARIN for IV BOLUS 10,000 UNIT/10 ML VIAL. ONE (08:49)
[2018-05-30] MEDS ORDERED: IOHEXOL 300 MG/ML 100ML VIAL. ONE (08:49)
[2018-05-30] MEDS ORDERED: SURGICEL HEMOSTAT 4X8 EACH. ONE (08:49)
[2018-05-30] MEDS ORDERED: BISACODYL 10 MG SUPP.RECT. ONE (08:49)
[2018-05-30] MEDS ORDERED: ROCURONIUM 50 MG/5 ML VIAL. ONE (09:09)
[2018-05-30] MEDS ORDERED: SEVOFLURANE 61 TO 120 MINUTES. IH ONE (09:09)
[2018-05-30] MEDS ORDERED: fentaNYL PF VIAL 100 MCG/2 ML VIAL ONE ×2 (09:09→12:18)
[2018-05-30] MEDS ORDERED: NEOSTIGMINE METHYLSULFATE 5 MG/5 ML SYRINGE. ONE (09:09)
[2018-05-30] MEDS ORDERED: KETOROLAC 30 MG/ML INJ FOR OR. INJ ONE (09:10)
[2018-05-30] MEDS ORDERED: LIDOCAINE 2% PF 5 ML VIAL. ONE (09:10)
[2018-05-30] MEDS ORDERED: ONDANSETRON PF 4 MG/2 ML VIAL. ONE (09:10)
[2018-05-30] MEDS ORDERED: GLYCOPYRROLATE 1 MG/5 ML VIAL. ONE (09:10)
[2018-05-30] MEDS ORDERED: MIDAZOLAM HCL/PF 2 MG/2 ML VIAL. ONE (09:10)
[2018-05-30] MEDS ORDERED: DEXAMETHASONE SOD PHOS 20 MG/5 ML VIAL. ONE (09:10)
[2018-05-30] MEDS ORDERED: PROPOFOL 20 ML IV ONE (09:10)
--- NOTE | 2018-05-30 09:15 | NUR ---
Pt was taken via transportation to surgery center at 0900, alert x4, family at bedside, stable at this time. Will continue care when she returns.
[2018-05-30] MEDS ORDERED: IV RINGERS,LACTATED 1000ML 1,000 ML IV SCH (09:57)
[2018-05-30] MEDS ORDERED: HYDROmorphone 2 MG/ML VIAL IV PRN (10:00)
[2018-05-30] MEDS ORDERED: LIDOCAINE 1% PF 2 ML VIAL. ID PRN (10:00)
[2018-05-30] MEDS ORDERED: PROCHLORPERAZINE 10 MG/2 ML VIAL. IV PRN (10:00)
[2018-05-30] MEDS ORDERED: ONDANSETRON PF 4 MG/2 ML VIAL. IV PRN ×2 (10:00→12:30)
[2018-05-30] MEDS ORDERED: fentaNYL PF VIAL 100 MCG/2 ML VIAL IV PRN (10:00)
[2018-05-30] MEDS ORDERED: DESFLURANE 31 TO 60 MINUTES IH ONE (10:14)
[2018-05-30] MEDS ORDERED: FAMOTIDINE 20 MG/2 ML VIAL ONE (10:14)
[2018-05-30] MEDS ORDERED: HEPARIN 1,000 UNIT in IV NORMAL SALINE 1,000 ML for SURG PERIOP IRR ONE (10:30)
--- NOTE | 2018-05-30 10:50 | PDOC ---
PROGRESS NOTES Chief Complaint Chief Complaint Symptomatic Cholelithiasis morbid obesity with bmi of 40 History of Present Illness History of Present Illness Out having laparoscopic cholecystectomy by Chart and labs reviewed Plan: await from OR Postop care and labs Vitals Vitals Vital Signs Date Time Temp Pulse Resp B/P (MAP) Pulse Ox O2 Delivery O2 Flow Rate FiO2 05/30/18 09:57 99 Room Air 05/30/18 09:54 20 05/30/18 09:10 98.3 100 134/84 98.3 Physical Exam General: Alert, Oriented X3, Cooperative, No acute distress Heart: Regular rate, Normal S1, Normal S2, No murmurs Abdomen: Soft, Other (ND, TTP upper abdomen ) Extremities: No clubbing, No cyanosis Skin: No rashes, No breakdown Labs LABS Laboratory Tests Test 05/29/18 14:50 05/29/18 15:09 05/29/18 15:35 05/30/18 06:07 Urine Collection Type Unknown Urine Color Yellow Urine Clarity Clear Urine pH 5.5 Urine Specific [place] >=1.030 Urine Protein Negative mg/dL (NEG-TRACE) Urine Glucose (UA) Negative mg/dL (NEG) Urine Ketones (Stick) Negative mg/dL (NEG) Urine Blood Small (NEG) Urine Nitrite Negative (NEG) Urine Bilirubin Negative (NEG) Urine Urobilinogen Dipstick 0.2 mg/dL (0.2 mg/dL) Urine Leukocyte Esterase Trace (NEG) Urine RBC 3-5 /HPF (0-2) Urine WBC 1-4 /HPF (0-4) Urine Squamous Epithelial Cells Mod /LPF Urine Bacteria Few /HPF (0-FEW) Urine Mucus Marked /LPF Urine Opiates Screen Neg (NEG) Urine Methadone Screen Neg (NEG) Urine Barbiturates Neg (NEG) Urine Phencyclidine Screen Neg (NEG) Urine Amphetamine/Methamphetamine Neg (NEG) Urine Benzodiazepines Screen Neg (NEG) Urine Cocaine Screen Neg (NEG) Urine Cannabinoids Screen Neg (NEG) Urine Ethyl Alcohol Neg (NEG) Bedside Urine HCG, Qualitative Hcg negative (Negative) White Blood Count 7.0 x10^3/uL (4.0-11.0) 9.7 x10^3/uL (4.0-11.0) Red Blood Count 4.30 x10^6/uL (3.50-5.40) 4.22 x10^6/uL (3.50-5.40) Hemoglobin 12.0 g/dL (12.0-15.5) 11.9 g/dL (12.0-15.5) Hematocrit 36.7 % (36.0-47.0) 36.1 % (36.0-47.0) Mean Corpuscular Volume 85 fL (79-100) 86 fL (79-100) Mean Corpuscular Hemoglobin 28 pg (25-35) 28 pg (25-35) Mean Corpuscular Hemoglobin Concent 33 g/dL (31-37) 33 g/dL (31-37) Red Cell Distribution Width 14.1 % (11.5-14.5) 13.9 % (11.5-14.5) Platelet Count 198 x10^3/uL (140-400) 182 x10^3/uL (140-400) Neutrophils (%) (Auto) 65 % (31-73) 81 % (31-73) Lymphocytes (%) (Auto) 27 % (24-48) 13 % (24-48) Monocytes (%) (Auto) 6 % (0-9) 5 % (0-9) Eosinophils (%) (Auto) 1 % (0-3) 0 % (0-3) Basophils (%) (Auto) 1 % (0-3) 0 % (0-3) Neutrophils # (Auto) 4.6 x10^3uL (1.8-7.7) 7.9 x10^3uL (1.8-7.7) Lymphocytes # (Auto) 1.9 x10^3/uL (1.0-4.8) 1.3 x10^3/uL (1.0-4.8) Monocytes # (Auto) 0.4 x10^3/uL (0.0-1.1) 0.5 x10^3/uL (0.0-1.1) Eosinophils # (Auto) 0.1 x10^3/uL (0.0-0.7) 0.0 x10^3/uL (0.0-0.7) Basophils # (Auto) 0.1 x10^3/uL (0.0-0.2) 0.0 x10^3/uL (0.0-0.2) Sodium Level 143 mmol/L (136-145) 138 mmol/L (136-145) Potassium Level 3.6 mmol/L (3.5-5.1) 3.6 mmol/L (3.5-5.1) Chloride Level 105 mmol/L (98-107) 103 mmol/L (98-107) Carbon Dioxide Level 22 mmol/L (21-32) 22 mmol/L (21-32) Anion Gap 16 (6-14) 13 (6-14) Blood Urea Nitrogen 9 mg/dL (7-20) 5 mg/dL (7-20) Creatinine 0.7 mg/dL (0.6-1.0) 0.6 mg/dL (0.6-1.0) Estimated GFR (Cockcroft-Gault) 103.7 123.9 BUN/Creatinine Ratio 13 (6-20) Glucose Level 99 mg/dL (70-99) 112 mg/dL (70-99) Calcium Level 8.9 mg/dL (8.5-10.1) 8.5 mg/dL (8.5-10.1) Total Bilirubin 0.2 mg/dL (0.2-1.0) Aspartate Amino Transf (AST/SGOT) 17 U/L (15-37) Alanine Aminotransferase (ALT/SGPT) 31 U/L (14-59) Alkaline Phosphatase 101 U/L (46-116) Total Protein 7.8 g/dL (6.4-8.2) Albumin 3.7 g/dL (3.4-5.0) Albumin/Globulin Ratio 0.9 (1.0-1.7) Lipase 128 U/L (73-393) Ethyl Alcohol Level < 10 mg/dL (0-10) Review of Systems Review of Systems out having OR Assessment and Plan Assessmemt and Plan Problems Medical Problems: (1) Cholelithiasis Status: Acute (2) Intractable abdominal pain Status: Acute Comment Review of Relevant I have reviewed the following items apolonia (where applicable) has been applied. Labs Laboratory Tests Test 05/29/18 14:50 05/29/18 15:09 05/29/18 15:35 05/30/18 06:07 Urine Collection Type Unknown Urine Color Yellow Urine Clarity Clear Urine pH 5.5 Urine Specific [place] >=1.030 Urine Protein Negative mg/dL (NEG-TRACE) Urine Glucose (UA) Negative mg/dL (NEG) Urine Ketones (Stick) Negative mg/dL (NEG) Urine Blood Small (NEG) Urine Nitrite Negative (NEG) Urine Bilirubin Negative (NEG) Urine Urobilinogen Dipstick 0.2 mg/dL (0.2 mg/dL) Urine Leukocyte Esterase Trace (NEG) Urine RBC 3-5 /HPF (0-2) Urine WBC 1-4 /HPF (0-4) Urine Squamous Epithelial Cells Mod /LPF Urine Bacteria Few /HPF (0-FEW) Urine Mucus Marked /LPF Urine Opiates Screen Neg (NEG) Urine Methadone Screen Neg (NEG) Urine Barbiturates Neg (NEG) Urine Phencyclidine Screen Neg (NEG) Urine Amphetamine/Methamphetamine Neg (NEG) Urine Benzodiazepines Screen Neg (NEG) Urine Cocaine Screen Neg (NEG) Urine Cannabinoids Screen Neg (NEG) Urine Ethyl Alcohol Neg (NEG) Bedside Urine HCG, Qualitative Hcg negative (Negative) White Blood Count 7.0 x10^3/uL (4.0-11.0) 9.7 x10^3/uL (4.0-11.0) Red Blood Count 4.30 x10^6/uL (3.50-5.40) 4.22 x10^6/uL (3.50-5.40) Hemoglobin 12.0 g/dL (12.0-15.5) 11.9 g/dL (12.0-15.5) Hematocrit 36.7 % (36.0-47.0) 36.1 % (36.0-47.0) Mean Corpuscular Volume 85 fL (79-100) 86 fL (79-100) Mean Corpuscular Hemoglobin 28 pg (25-35) 28 pg (25-35) Mean Corpuscular Hemoglobin Concent 33 g/dL (31-37) 33 g/dL (31-37) Red Cell Distribution Width 14.1 % (11.5-14.5) 13.9 % (11.5-14.5) Platelet Count 198 x10^3/uL (140-400) 182 x10^3/uL (140-400) Neutrophils (%) (Auto) 65 % (31-73) 81 % (31-73) Lymphocytes (%) (Auto) 27 % (24-48) 13 % (24-48) Monocytes (%) (Auto) 6 % (0-9) 5 % (0-9) Eosinophils (%) (Auto) 1 % (0-3) 0 % (0-3) Basophils (%) (Auto) 1 % (0-3) 0 % (0-3) Neutrophils # (Auto) 4.6 x10^3uL (1.8-7.7) 7.9 x10^3uL (1.8-7.7) Lymphocytes # (Auto) 1.9 x10^3/uL (1.0-4.8) 1.3 x10^3/uL (1.0-4.8) Monocytes # (Auto) 0.4 x10^3/uL (0.0-1.1) 0.5 x10^3/uL (0.0-1.1) Eosinophils # (Auto) 0.1 x10^3/uL (0.0-0.7) 0.0 x10^3/uL (0.0-0.7) Basophils # (Auto) 0.1 x10^3/uL (0.0-0.2) 0.0 x10^3/uL (0.0-0.2) Sodium Level 143 mmol/L (136-145) 138 mmol/L (136-145) Potassium Level 3.6 mmol/L (3.5-5.1) 3.6 mmol/L (3.5-5.1) Chloride Level 105 mmol/L (98-107) 103 mmol/L (98-107) Carbon Dioxide Level 22 mmol/L (21-32) 22 mmol/L (21-32) Anion Gap 16 (6-14) 13 (6-14) Blood Urea Nitrogen 9 mg/dL (7-20) 5 mg/dL (7-20) Creatinine 0.7 mg/dL (0.6-1.0) 0.6 mg/dL (0.6-1.0) Estimated GFR (Cockcroft-Gault) 103.7 123.9 BUN/Creatinine Ratio 13 (6-20) Glucose Level 99 mg/dL (70-99) 112 mg/dL (70-99) Calcium Level 8.9 mg/dL (8.5-10.1) 8.5 mg/dL (8.5-10.1) Total Bilirubin 0.2 mg/dL (0.2-1.0) Aspartate Amino Transf (AST/SGOT) 17 U/L (15-37) Alanine Aminotransferase (ALT/SGPT) 31 U/L (14-59) Alkaline Phosphatase 101 U/L (46-116) Total Protein 7.8 g/dL (6.4-8.2) Albumin 3.7 g/dL (3.4-5.0) Albumin/Globulin Ratio 0.9 (1.0-1.7) Lipase 128 U/L (73-393) Ethyl Alcohol Level < 10 mg/dL (0-10) Laboratory Tests Test 05/29/18 14:50 05/29/18 15:09 05/29/18 15:35 05/30/18 06:07 Urine Collection Type Unknown Urine Color Yellow Urine Clarity Clear Urine pH 5.5 Urine Specific [place] >=1.030 Urine Protein Negative mg/dL (NEG-TRACE) Urine Glucose (UA) Negative mg/dL (NEG) Urine Ketones (Stick) Negative mg/dL (NEG) Urine Blood Small (NEG) Urine Nitrite Negative (NEG) Urine Bilirubin Negative (NEG) Urine Urobilinogen Dipstick 0.2 mg/dL (0.2 mg/dL) Urine Leukocyte Esterase Trace (NEG) Urine RBC 3-5 /HPF (0-2) Urine WBC 1-4 /HPF (0-4) Urine Squamous Epithelial Cells Mod /LPF Urine Bacteria Few /HPF (0-FEW) Urine Mucus Marked /LPF Urine Opiates Screen Neg (NEG) Urine Methadone Screen Neg (NEG) Urine Barbiturates Neg (NEG) Urine Phencyclidine Screen Neg (NEG) Urine Amphetamine/Methamphetamine Neg (NEG) Urine Benzodiazepines Screen Neg (NEG) Urine Cocaine Screen Neg (NEG) Urine Cannabinoids Screen Neg (NEG) Urine Ethyl Alcohol Neg (NEG) Bedside Urine HCG, Qualitative Hcg negative (Negative) White Blood Count 7.0 x10^3/uL (4.0-11.0) 9.7 x10^3/uL (4.0-11.0) Red Blood Count 4.30 x10^6/uL (3.50-5.40) 4.22 x10^6/uL (3.50-5.40) Hemoglobin 12.0 g/dL (12.0-15.5) 11.9 g/dL (12.0-15.5) Hematocrit 36.7 % (36.0-47.0) 36.1 % (36.0-47.0) Mean Corpuscular Volume 85 fL (79-100) 86 fL (79-100) Mean Corpuscular Hemoglobin 28 pg (25-35) 28 pg (25-35) Mean Corpuscular Hemoglobin Concent 33 g/dL (31-37) 33 g/dL (31-37) Red Cell Distribution Width 14.1 % (11.5-14.5) 13.9 % (11.5-14.5) Platelet Count 198 x10^3/uL (140-400) 182 x10^3/uL (140-400) Neutrophils (%) (Auto) 65 % (31-73) 81 % (31-73) Lymphocytes (%) (Auto) 27 % (24-48) 13 % (24-48) Monocytes (%) (Auto) 6 % (0-9) 5 % (0-9) Eosinophils (%) (Auto) 1 % (0-3) 0 % (0-3) Basophils (%) (Auto) 1 % (0-3) 0 % (0-3) Neutrophils # (Auto) 4.6 x10^3uL (1.8-7.7) 7.9 x10^3uL (1.8-7.7) Lymphocytes # (Auto) 1.9 x10^3/uL (1.0-4.8) 1.3 x10^3/uL (1.0-4.8) Monocytes # (Auto) 0.4 x10^3/uL (0.0-1.1) 0.5 x10^3/uL (0.0-1.1) Eosinophils # (Auto) 0.1 x10^3/uL (0.0-0.7) 0.0 x10^3/uL (0.0-0.7) Basophils # (Auto) 0.1 x10^3/uL (0.0-0.2) 0.0 x10^3/uL (0.0-0.2) Sodium Level 143 mmol/L (136-145) 138 mmol/L (136-145) Potassium Level 3.6 mmol/L (3.5-5.1) 3.6 mmol/L (3.5-5.1) Chloride Level 105 mmol/L (98-107) 103 mmol/L (98-107) Carbon Dioxide Level 22 mmol/L (21-32) 22 mmol/L (21-32) Anion Gap 16 (6-14) 13 (6-14) Blood Urea Nitrogen 9 mg/dL (7-20) 5 mg/dL (7-20) Creatinine 0.7 mg/dL (0.6-1.0) 0.6 mg/dL (0.6-1.0) Estimated GFR (Cockcroft-Gault) 103.7 123.9 BUN/Creatinine Ratio 13 (6-20) Glucose Level 99 mg/dL (70-99) 112 mg/dL (70-99) Calcium Level 8.9 mg/dL (8.5-10.1) 8.5 mg/dL (8.5-10.1) Total Bilirubin 0.2 mg/dL (0.2-1.0) Aspartate Amino Transf (AST/SGOT) 17 U/L (15-37) Alanine Aminotransferase (ALT/SGPT) 31 U/L (14-59) Alkaline Phosphatase 101 U/L (46-116) Total Protein 7.8 g/dL (6.4-8.2) Albumin 3.7 g/dL (3.4-5.0) Albumin/Globulin Ratio 0.9 (1.0-1.7) Lipase 128 U/L (73-393) Ethyl Alcohol Level < 10 mg/dL (0-10) Medications Current Medications Sodium Chloride 1,000 ml @ 1,000 mls/hr 1X ONCE IV Last administered on at 15:26; Start 05/29/18 at 15:30; Stop 05/29/18 at 16:29; Status DC Famotidine (Pepcid Vial) 20 mg 1X ONCE IVP Last administered on 05/29/18at 15: 25; Start 05/29/18 at 15:30; Stop 05/29/18 at 15:31; Status DC Ondansetron HCl (Zofran) 4 mg 1X ONCE IV Last administered on 05/29/18at 15:25 ; Start 05/29/18 at 15:30; Stop 05/29/18 at 15:31; Status DC Fentanyl Citrate (Fentanyl 2ml Vial) 50 mcg 1X ONCE IV Last administered on 12/07at 15:26; Start 05/29/18 at 15:30; Stop 05/29/18 at 15:31; Status DC Fentanyl Citrate (Fentanyl 2ml Vial) 50 mcg 1X ONCE IV Last administered on 12/07at 15:59; Start 05/29/18 at 16:00; Stop 05/29/18 at 16:01; Status DC Hydromorphone HCl (Dilaudid) 1 mg 1X ONCE IV Last administered on 05/29/18at 16 :33; Start 05/29/18 at 16:30; Stop 05/29/18 at 16:31; Status DC Sodium Chloride 1,000 ml @ 100 mls/hr Q10H IV Last administered on 05/30/18at 03:33; Start 05/29/18 at 16:29 Ondansetron HCl (Zofran) 4 mg PRN Q4HRS PRN IV NAUSEA/VOMITING Last administered on 05/29/18at 18:45; Start 05/29/18 at 16:30 Zolpidem Tartrate (Ambien) 5 mg PRN QHS PRN PO INSOMNIA Last administered on 23:53; Start 05/29/18 at 16:30 Acetaminophen (Tylenol) 650 mg PRN Q4HRS PRN PO TEMP OVER 100.4F OR MILD PAIN Last administered on 05/29/18at 19:45; Start 05/29/18 at 16:30 Acetaminophen (Tylenol Supp) 650 mg PRN Q4HRS PRN CO TEMP OVER 100.4F OR MILD PAIN; Start 05/29/18 at 16:30 Clonidine HCl (Catapres) 0.1 mg PRN Q6HRS PRN PO SBP>160 OR DBP>90; Start 05/29 at 16:30 Diphenhydramine HCl (Benadryl) 25 mg PRN Q4HRS PRN IVP ITCHING; Start 05/29/18 at 16:30 Docusate Sodium (Colace) 100 mg PRN BID PRN PO CONSTIPATION; Start 05/29/18 at 16:30 Albuterol Sulfate (Ventolin Neb Soln) 2.5 mg PRN Q4HRS PRN NEB SHORTNESS OF BREATH; Start 05/29/18 at 16:30 Albuterol/ Ipratropium (Duoneb) 3 ml Q4H NEB Last administered on 05/29/18at 16: 49; Start 05/29/18 at 16:30; Stop 05/29/18 at 20:56; Status DC Lorazepam (Ativan) 2 mg PRN Q4HRS PRN IV ANXIETY / AGITATION Last administered on 05/29/18at 23:54; Start 05/29/18 at 16:30 Morphine Sulfate (Morphine Sulfate) 2 mg PRN Q3HRS PRN IV severe pain Last administered on 05/30/18 06:29; Start 05/29/18 at 16:30; Stop 05/30/18 at 07:53 ; Status DC Sodium Chloride 1,000 ml @ 100 mls/hr 1X ONCE IV Last administered on at 16:30; Start 05/29/18 at 16:30; Stop 05/30/18 at 02:29; Status DC Cefazolin Sodium/ Dextrose 50 ml @ 100 mls/hr 1X PREOP IV ; Start 05/29/18 at 17:15; Stop 05/29/18 at 19:22; Status DC Cefazolin Sodium/ Dextrose 50 ml @ 100 mls/hr 1X PREOP IV Last administered on 05/30/18at 10:25; Start 05/30/18 at 06:00 Albuterol/ Ipratropium (Duoneb) 3 ml PRN Q4HRS PRN NEB SHORTNESS OF BREATH; Start 05/29/18 at 21:00; Stop 05/29/18 at 21:00; Status DC Morphine Sulfate (Morphine Sulfate) 2 mg 1X ONCE IV Last administered on at 21:43; Start 05/29/18 at 21:00; Stop 05/29/18 at 21:01; Status DC Morphine Sulfate (Morphine Sulfate) 2 mg PRN Q2HR PRN IV severe pain Last administered on 05/30/18at 09:54; Start 05/30/18 at 08:00 Hydromorphone HCl (Dilaudid) 0.4 mg 1X ONCE IV Last administered on 05/30/18at 08:21; Start 05/30/18 at 08:00; Stop 05/30/18 at 08:01; Status DC Sevoflurane (Ultane) 60 ml STK-MED ONCE IH ; Start 05/30/18 at 09:09; Stop 05/30 at 09:10; Status DC Rocuronium [place] (Zemuron) 50 mg STK-MED ONCE .ROUTE ; Start 05/30/18 at 09:09 ; Stop 05/30/18 at 09:10; Status DC Fentanyl Citrate (Fentanyl 2ml Vial) 100 mcg STK-MED ONCE .ROUTE ; Start at 09:09; Stop 05/30/18 at 09:10; Status DC Neostigmine Methylsulfate (Neostigmine Methylsulfate) 5 mg STK-MED ONCE .ROUTE ; Start 05/30/18 at 09:09; Stop 05/30/18 at 09:10; Status DC Midazolam HCl (Versed) 2 mg STK-MED ONCE .ROUTE ; Start 05/30/18 at 09:10; Stop 05/30/18 at 09:11; Status DC Glycopyrrolate (Robinul) 1 mg STK-MED ONCE .ROUTE ; Start 05/30/18 at 09:10; Stop 05/30/18 at 09:11; Status DC Propofol 20 ml @ As Directed STK-MED ONCE IV ; Start 05/30/18 at 09:10; Stop 01/07 at 09:11; Status DC Lidocaine HCl (Lidocaine Pf 2% Vial) 5 ml STK-MED ONCE .ROUTE ; Start 05/30/18 at 09:10; Stop 05/30/18 at 09:11; Status DC Ketorolac Tromethamine (Toradol For Or Only) 30 mg STK-MED ONCE INJ ; Start 01/07 at 09:10; Stop 05/30/18 at 09:11; Status DC Ondansetron HCl (Zofran) 4 mg STK-MED ONCE .ROUTE ; Start 05/30/18 at 09:10; Stop 05/30/18 at 09:11; Status DC Dexamethasone Sodium Phosphate (Decadron) 20 mg STK-MED ONCE .ROUTE ; Start 01/07 at 09:10; Stop 05/30/18 at 09:11; Status DC Bupivacaine HCl/ Epinephrine Bitart (Sensorcain-Mpf Epi 0.5%-1:[id number]) 30 ml STK -MED ONCE .ROUTE ; Start 05/30/18 at 08:48; Stop 05/30/18 at 09:49; Status DC Heparin Sodium (Porcine) (Heparin Sodium) 10,000 unit STK-MED ONCE .ROUTE ; Start 05/30/18 at 08:49; Stop 05/30/18 at 09:49; Status DC Iohexol (Omnipaque 300 Mg/ml) 100 ml STK-MED ONCE .ROUTE ; Start 05/30/18 at 08: 49; Stop 05/30/18 at 09:49; Status DC Cellulose (Surgicel Hemostat 4x8) 1 each STK-MED ONCE .ROUTE ; Start 05/30/18 at 08:49; Stop 05/30/18 at 09:49; Status DC Bisacodyl (Dulcolax Supp) 10 mg STK-MED ONCE .ROUTE ; Start 05/30/18 at 08:49; Stop 05/30/18 at 09:49; Status DC Ondansetron HCl (Zofran) 4 mg PRN Q6HRS PRN IV NAUSEA/VOMITING; Start 05/30/18 at 10:00; Stop 05/31/18 at 09:59 Fentanyl Citrate (Fentanyl 2ml Vial) 25 mcg PRN Q5MIN PRN IV MILD PAIN; Start 05/30/18 at 10:00; Stop 05/31/18 at 09:59 Fentanyl Citrate (Fentanyl 2ml Vial) 50 mcg PRN Q5MIN PRN IV MODERATE TO SEVERE PAIN; Start 05/30/18 at 10:00; Stop 05/31/18 at 09:59 Morphine Sulfate (Morphine Sulfate) 1 mg PRN Q10MIN PRN IV SEVERE PAIN; Start 05/30/18 at 10:00; Stop 05/31/18 at 09:59 Ringer's Solution 1,000 ml @ 30 mls/hr Q24H IV ; Start 05/30/18 at 09:57; Stop 05/30/18 at 21:56 Lidocaine HCl (Xylocaine-Mpf 1% 2ml Vial) 2 ml PRN 1X PRN ID PRIOR TO IV START ; Start 05/30/18 at 10:00; Stop 05/31/18 at 09:59 Hydromorphone HCl (Dilaudid) 0.5 mg PRN Q10MIN PRN IV SEV PAIN, Second choice; Start 05/30/18 at 10:00; Stop 05/31/18 at 09:59 Prochlorperazine Edisylate (Compazine) 5 mg PACU PRN PRN IV NAUSEA, MRX1; Start 05/30/18 at 10:00; Stop 05/31/18 at 09:59 Heparin Sodium (Porcine) 1000 unit/Sodium Chloride 1,001 ml @ 1,001 mls/hr 1X ONCE IRR ; Start 05/30/18 at 10:30; Stop 05/30/18 at 11:29 Famotidine (Pepcid Vial) 20 mg STK-MED ONCE .ROUTE ; Start 05/30/18 at 10:14; Stop 05/30/18 at 10:15; Status DC Desflurane (Suprane) 30 ml STK-MED ONCE IH ; Start 05/30/18 at 10:14; Stop 05/30 at 10:15; Status DC Vitals/I & O Vital Sign - Last 24 Hours 05/29/18 05/29/18 05/29/18 05/29/18 15:26 15:35 15:56 15:59 Temp 98.6 98.6 Pulse 83 Resp 16 14 22 B/P (MAP) 157/74 (101) Pulse Ox 99 83 98 O2 Delivery Room Air Room Air Room Air Room Air 05/29/18 05/29/18 05/29/18 05/29/18 16:33 16:34 16:54 17:03 Pulse 81 Resp 24 B/P (MAP) 140/84 (102) Pulse Ox 99 98 99 O2 Delivery Room Air Room Air Room Air 05/29/18 05/29/18 05/29/18 05/29/18 17:30 18:00 18:45 19:00 Temp 98.0 98.0 Pulse 88 84 90 Resp 22 22 20 B/P (MAP) 152/66 (94) 154/80 (104) 149/101 (117) Pulse Ox 98 98 99 O2 Delivery Room Air Room Air Room Air Room Air 05/29/18 05/29/18 05/29/18 05/29/18 20:00 21:43 22:19 22:26 O2 Delivery Room Air Room Air Room Air Room Air 05/29/18 05/30/18 05/30/18 05/30/18 23:00 03:00 03:32 06:29 Temp 98.6 98.6 98.6 98.6 Pulse 89 80 Resp 18 18 B/P (MAP) 135/55 (81) 120/60 (80) Pulse Ox 99 99 O2 Delivery Room Air Room Air Room Air Room Air 05/30/18 05/30/18 05/30/18 05/30/18 07:00 07:37 08:21 09:10 Temp 98.0 98.3 98.0 98.3 Pulse 89 100 Resp 18 26 B/P (MAP) 143/83 (103) 134/84 Pulse Ox 98 99 99 97 O2 Delivery Room Air Room Air Room Air Room Air 05/30/18 05/30/18 09:54 09:57 Resp 20 Pulse Ox 99 99 O2 Delivery Room Air Room Air Intake and Output 05/29/18 05/29/18 05/30/18 14:59 22:59 06:59 Intake Total 50 ml Output Total 50 ml 50 ml Balance -50 ml 0 ml STEVE NAVA MD May 30, 2018 10:50
--- NOTE | 2018-05-30 11:48 | RAD ---
C-arm fluoroscopy with fluoroscopic spot views Clinical indications: Intraoperative cholangiogram. Common bile duct exploration and stone removal was performed as well. Total fluoroscopic time: 4 minutes and 25 seconds. Total fluoroscopic spot views: 4 IMPRESSION: Fluoroscopic spot views demonstrate a common bile duct stone with mild dilatation of the extra hepatic biliary tree. Free flow of contrast material from the common bile duct into the duodenum is seen. See operative report for full details. Electronically signed by: Clyde Rae MD (05/30/2018 11:45 AM) [facility]
[2018-05-30] MEDS: fentaNYL PF VIAL 100 MCG/2 ML VIAL IV PRN ×2 (12:20→12:35)
[2018-05-30] MEDS: IV RINGERS,LACTATED 1000ML 1,000 ML IV SCH ×2 (12:25→22:25)
[2018-05-30] MEDS ORDERED: 0.9 % SODIUM CHLORIDE 10 ML DISP.SYRIN. IV PRN (12:30)
[2018-05-30] MEDS ORDERED: DEXTROSE 50% 25 GM / 50ML DISP.SYRIN. IV PRN (12:30)
--- NOTE | 2018-05-30 12:36 | PDOC4 ---
OPERATIVE NOTE Date: Date: May 30, 2018 Pre-Op Diagnosis: Calculous cholecystitis Post-Op Diagnosis: same, choledocholithiasis Procedure Performed: laparoscopic cholecystectomy and common bile duct exploration Surgeon: Donn Pederson Anesthesia Type: GETA plus local Blood Loss: 50 Specimans Obtained: gallbladder Findings: chronic adhesions, gallbladder distention with white bile c/w cystic duct obstruction, choledocholithiasis Complications: none Operative Note: After obtaining informed consent, patient was taken to OR, induced under GETA and prepped in the usual fashion. 5 mm port placed umbilical and RUQ, 12 port placed epigastric, all under laparoscopic guidance. Abdominal cavity was explored and the above findings noted. Patient is morbidly obese making the procedure difficult throughout. Extensive inflammation noted. Surgical plans obliterated. Careful critical view dissected out. Cystic artery ligated with clips. Cholangiogram obtained via cystic duct, which demonstrated common bile duct stone. This was pushed through with a shelton catheter. Completion cholangiogram demonstrated normal anatomy, no filling defect and free extravasation into duodenum. Cystic duct ligated with hemolok and clips. Gallbladder taken off fossa using cautery, placed in bag, delivered and sent to pathology for evaluation. Copious irrigation. No evidence of bleeding or other pathology. Ports removed without evidence of bleeding. Fascia closed with 0 vicryl. Skin repaired with 4 0 monocryl. Dressing placed. Patient tolerated procedure well and sent to PACU in stable condition. All counts correct. Wound class is 3. JEANNA PEDERSON MD May 30, 2018 12:36
[2018-05-30] MEDS: HYDROcodone/APAP 5/325MG 1 TAB TABLET PO PRN ×2 (14:29→22:28)
--- NOTE | 2018-05-30 16:01 | NUR ---
SW following. Discussed with RN, pt is from home. SW listed as self pay, SW to meet with pt prior to discharge to give self pay resource packet. RN advised no SW needs and possible discharge home tomorrow (05/31/18).
[2018-05-30] MEDS: KETOROLAC 15 MG/ML VIAL. IV PRN (17:08)
[2018-05-30] MEDS: DOCUSATE SODIUM 100 MG CAPSULE. PO SCH (21:00)
[2018-05-31 03:38] VITALS: BP 105/54
[2018-05-31 03:42] LABS: BASO % 0 % (0-3); EOS % 0 % (0-3); HEMATOCRIT 32.2 % (36.0-47.0); HEMOGLOBIN 10.6 g/dL (12.0-15.5); LYMPH # 0.9 x10^3/uL (1.0-4.8); LYMPH % 10 % (24-48); MEAN CORPUSCULAR HEMOGLOBIN 28 pg (25-35); MEAN CORPUSCULAR HGB CONC 33 g/dL (31-37); MEAN CORPUSCULAR VOLUME 85 fL (79-100); MONO # 0.6 x10^3/uL (0.0-1.1); MONO % 7 % (0-9); NEUT # 7.1 x10^3uL (1.8-7.7); NEUT % 83 % (31-73); PLATELET COUNT 153 x10^3/uL (140-400); RED BLOOD COUNT 3.79 x10^6/uL (3.50-5.40); RED CELL DISTRIBUTION WIDTH 14.4 % (11.5-14.5); WHITE BLOOD COUNT 8.5 x10^3/uL (4.0-11.0)
[2018-05-31 04:05] LABS: ALBUMIN 2.9 g/dL (3.4-5.0); DIRECT BILIRUBIN 0.1 mg/dL (0.0-0.2); TOTAL BILIRUBIN 0.4 mg/dL (0.2-1.0); TOTAL PROTEIN 6.8 g/dL (6.4-8.2)
[2018-05-31] MEDS: HYDROcodone/APAP 5/325MG 1 TAB TABLET PO PRN (06:08)
[2018-05-31] MEDS: MORPHINE SULFATE 2 MG/ML VIAL. IV PRN (06:09)
[2018-05-31 07:00] VITALS: BP 112/59
[2018-05-31] MEDS: KETOROLAC 15 MG/ML VIAL. IV PRN (08:06)
[2018-05-31] MEDS: IV RINGERS,LACTATED 1000ML 1,000 ML IV SCH (08:15)
[2018-05-31] MEDS: IV NORMAL SALINE 1000ML BAG 1,000 ML IV SCH (08:15)
--- NOTE | 2018-05-31 09:12 | PDOC ---
SURGICAL PROGRESS NOTE Subjective complaints of significant pain--RUQ, ribs no emesis Vital Signs Vital Signs Date Time Temp Pulse Resp B/P (MAP) Pulse Ox O2 Delivery O2 Flow Rate FiO2 05/31/18 07:15 Room Air 05/31/18 07:00 98.8 83 20 112/59 (76) 94 98.8 05/30/18 12:45 2.0 I&O Intake and Output 05/31/18 07:00 Intake Total 1880 ml Output Total 25 ml Balance 1855 ml Intake Oral 730 ml IV Total 1150 ml Output Urine Total 15 ml Estimated Blood Loss 10 ml # Voids 7 General: Alert, Oriented X3, Cooperative, No acute distress Abdomen: Soft, Other (lap dressings dry ) Labs Laboratory Tests Test 05/29/18 14:50 05/29/18 15:09 05/29/18 15:35 05/30/18 06:07 Urine Collection Type Unknown Urine Color Yellow Urine Clarity Clear Urine pH 5.5 Urine Specific [place] >=1.030 Urine Protein Negative mg/dL (NEG-TRACE) Urine Glucose (UA) Negative mg/dL (NEG) Urine Ketones (Stick) Negative mg/dL (NEG) Urine Blood Small (NEG) Urine Nitrite Negative (NEG) Urine Bilirubin Negative (NEG) Urine Urobilinogen Dipstick 0.2 mg/dL (0.2 mg/dL) Urine Leukocyte Esterase Trace (NEG) Urine RBC 3-5 /HPF (0-2) Urine WBC 1-4 /HPF (0-4) Urine Squamous Epithelial Cells Mod /LPF Urine Bacteria Few /HPF (0-FEW) Urine Mucus Marked /LPF Urine Opiates Screen Neg (NEG) Urine Methadone Screen Neg (NEG) Urine Barbiturates Neg (NEG) Urine Phencyclidine Screen Neg (NEG) Urine Amphetamine/Methamphetamine Neg (NEG) Urine Benzodiazepines Screen Neg (NEG) Urine Cocaine Screen Neg (NEG) Urine Cannabinoids Screen Neg (NEG) Urine Ethyl Alcohol Neg (NEG) Bedside Urine HCG, Qualitative Hcg negative (Negative) White Blood Count 7.0 x10^3/uL (4.0-11.0) 9.7 x10^3/uL (4.0-11.0) Red Blood Count 4.30 x10^6/uL (3.50-5.40) 4.22 x10^6/uL (3.50-5.40) Hemoglobin 12.0 g/dL (12.0-15.5) 11.9 g/dL (12.0-15.5) Hematocrit 36.7 % (36.0-47.0) 36.1 % (36.0-47.0) Mean Corpuscular Volume 85 fL (79-100) 86 fL (79-100) Mean Corpuscular Hemoglobin 28 pg (25-35) 28 pg (25-35) Mean Corpuscular Hemoglobin Concent 33 g/dL (31-37) 33 g/dL (31-37) Red Cell Distribution Width 14.1 % (11.5-14.5) 13.9 % (11.5-14.5) Platelet Count 198 x10^3/uL (140-400) 182 x10^3/uL (140-400) Neutrophils (%) (Auto) 65 % (31-73) 81 % (31-73) Lymphocytes (%) (Auto) 27 % (24-48) 13 % (24-48) Monocytes (%) (Auto) 6 % (0-9) 5 % (0-9) Eosinophils (%) (Auto) 1 % (0-3) 0 % (0-3) Basophils (%) (Auto) 1 % (0-3) 0 % (0-3) Neutrophils # (Auto) 4.6 x10^3uL (1.8-7.7) 7.9 x10^3uL (1.8-7.7) Lymphocytes # (Auto) 1.9 x10^3/uL (1.0-4.8) 1.3 x10^3/uL (1.0-4.8) Monocytes # (Auto) 0.4 x10^3/uL (0.0-1.1) 0.5 x10^3/uL (0.0-1.1) Eosinophils # (Auto) 0.1 x10^3/uL (0.0-0.7) 0.0 x10^3/uL (0.0-0.7) Basophils # (Auto) 0.1 x10^3/uL (0.0-0.2) 0.0 x10^3/uL (0.0-0.2) Sodium Level 143 mmol/L (136-145) 138 mmol/L (136-145) Potassium Level 3.6 mmol/L (3.5-5.1) 3.6 mmol/L (3.5-5.1) Chloride Level 105 mmol/L (98-107) 103 mmol/L (98-107) Carbon Dioxide Level 22 mmol/L (21-32) 22 mmol/L (21-32) Anion Gap 16 (6-14) 13 (6-14) Blood Urea Nitrogen 9 mg/dL (7-20) 5 mg/dL (7-20) Creatinine 0.7 mg/dL (0.6-1.0) 0.6 mg/dL (0.6-1.0) Estimated GFR (Cockcroft-Gault) 103.7 123.9 BUN/Creatinine Ratio 13 (6-20) Glucose Level 99 mg/dL (70-99) 112 mg/dL (70-99) Calcium Level 8.9 mg/dL (8.5-10.1) 8.5 mg/dL (8.5-10.1) Total Bilirubin 0.2 mg/dL (0.2-1.0) Aspartate Amino Transf (AST/SGOT) 17 U/L (15-37) Alanine Aminotransferase (ALT/SGPT) 31 U/L (14-59) Alkaline Phosphatase 101 U/L (46-116) Total Protein 7.8 g/dL (6.4-8.2) Albumin 3.7 g/dL (3.4-5.0) Albumin/Globulin Ratio 0.9 (1.0-1.7) Lipase 128 U/L (73-393) Ethyl Alcohol Level < 10 mg/dL (0-10) Test 05/31/18 03:30 White Blood Count 8.5 x10^3/uL (4.0-11.0) Red Blood Count 3.79 x10^6/uL (3.50-5.40) Hemoglobin 10.6 g/dL (12.0-15.5) Hematocrit 32.2 % (36.0-47.0) Mean Corpuscular Volume 85 fL (79-100) Mean Corpuscular Hemoglobin 28 pg (25-35) Mean Corpuscular Hemoglobin Concent 33 g/dL (31-37) Red Cell Distribution Width 14.4 % (11.5-14.5) Platelet Count 153 x10^3/uL (140-400) Neutrophils (%) (Auto) 83 % (31-73) Lymphocytes (%) (Auto) 10 % (24-48) Monocytes (%) (Auto) 7 % (0-9) Eosinophils (%) (Auto) 0 % (0-3) Basophils (%) (Auto) 0 % (0-3) Neutrophils # (Auto) 7.1 x10^3uL (1.8-7.7) Lymphocytes # (Auto) 0.9 x10^3/uL (1.0-4.8) Monocytes # (Auto) 0.6 x10^3/uL (0.0-1.1) Eosinophils # (Auto) 0.0 x10^3/uL (0.0-0.7) Basophils # (Auto) 0.0 x10^3/uL (0.0-0.2) Total Bilirubin 0.4 mg/dL (0.2-1.0) Direct Bilirubin 0.1 mg/dL (0.0-0.2) Aspartate Amino Transf (AST/SGOT) 60 U/L (15-37) Alanine Aminotransferase (ALT/SGPT) 86 U/L (14-59) Alkaline Phosphatase 76 U/L (46-116) Total Protein 6.8 g/dL (6.4-8.2) Albumin 2.9 g/dL (3.4-5.0) Laboratory Tests Test 05/31/18 03:30 White Blood Count 8.5 x10^3/uL (4.0-11.0) Red Blood Count 3.79 x10^6/uL (3.50-5.40) Hemoglobin 10.6 g/dL (12.0-15.5) Hematocrit 32.2 % (36.0-47.0) Mean Corpuscular Volume 85 fL (79-100) Mean Corpuscular Hemoglobin 28 pg (25-35) Mean Corpuscular Hemoglobin Concent 33 g/dL (31-37) Red Cell Distribution Width 14.4 % (11.5-14.5) Platelet Count 153 x10^3/uL (140-400) Neutrophils (%) (Auto) 83 % (31-73) Lymphocytes (%) (Auto) 10 % (24-48) Monocytes (%) (Auto) 7 % (0-9) Eosinophils (%) (Auto) 0 % (0-3) Basophils (%) (Auto) 0 % (0-3) Neutrophils # (Auto) 7.1 x10^3uL (1.8-7.7) Lymphocytes # (Auto) 0.9 x10^3/uL (1.0-4.8) Monocytes # (Auto) 0.6 x10^3/uL (0.0-1.1) Eosinophils # (Auto) 0.0 x10^3/uL (0.0-0.7) Basophils # (Auto) 0.0 x10^3/uL (0.0-0.2) Total Bilirubin 0.4 mg/dL (0.2-1.0) Direct Bilirubin 0.1 mg/dL (0.0-0.2) Aspartate Amino Transf (AST/SGOT) 60 U/L (15-37) Alanine Aminotransferase (ALT/SGPT) 86 U/L (14-59) Alkaline Phosphatase 76 U/L (46-116) Total Protein 6.8 g/dL (6.4-8.2) Albumin 2.9 g/dL (3.4-5.0) Problem List Problems Medical Problems: (1) Cholelithiasis Status: Acute (2) Intractable abdominal pain Status: Acute Assessment/Plan s/p tyron increase pain dose, increase activity ZEB CARRION APRN May 31, 2018 09:12
[2018-05-31] MEDS ORDERED: HYDROcodone/APAP 5/325MG 1 TAB TABLET PO PRN (09:30)
[2018-05-31] MEDS ORDERED: ONDANSETRON PF 4 MG/2 ML VIAL. IV PRN (09:30)
[2018-05-31] MEDS ORDERED: ONDANSETRON ODT 4 MG TAB.RAPDIS. PO PRN (09:30)
[2018-05-31] MEDS: DOCUSATE SODIUM 100 MG CAPSULE. PO SCH (10:23)
[2018-05-31 11:00] VITALS: BP 104/59
--- NOTE | 2018-05-31 12:05 | PDOC3 ---
Discharge Summary Visit Information Date of Admission: May 29, 2018 Date of Discharge: May 31, 2018 Admitting Diagnosis Comment: Symptomatic Cholelithiasis morbid obesity with bmi of 40 Final Diagnosis Problems Medical Problems: (1) Cholelithiasis Status: Acute (2) Intractable abdominal pain Status: Acute Brief Hospital Course Allergies Allergies Coded Allergies Type Severity Reaction Last Updated Verified amoxicillin Allergy Intermediate Rash 05/30/18 Yes Vital Signs Vital Signs Date Time Temp Pulse Resp B/P (MAP) Pulse Ox O2 Delivery O2 Flow Rate FiO2 05/31/18 10:24 Room Air 05/31/18 07:00 98.8 83 20 112/59 (76) 94 98.8 05/30/18 12:45 2.0 Lab Results Laboratory Tests Test 05/29/18 14:50 05/29/18 15:09 05/29/18 15:35 05/30/18 06:07 Urine Collection Type Unknown Urine Color Yellow Urine Clarity Clear Urine pH 5.5 Urine Specific [place] >=1.030 Urine Protein Negative mg/dL (NEG-TRACE) Urine Glucose (UA) Negative mg/dL (NEG) Urine Ketones (Stick) Negative mg/dL (NEG) Urine Blood Small (NEG) Urine Nitrite Negative (NEG) Urine Bilirubin Negative (NEG) Urine Urobilinogen Dipstick 0.2 mg/dL (0.2 mg/dL) Urine Leukocyte Esterase Trace (NEG) Urine RBC 3-5 /HPF (0-2) Urine WBC 1-4 /HPF (0-4) Urine Squamous Epithelial Cells Mod /LPF Urine Bacteria Few /HPF (0-FEW) Urine Mucus Marked /LPF Urine Opiates Screen Neg (NEG) Urine Methadone Screen Neg (NEG) Urine Barbiturates Neg (NEG) Urine Phencyclidine Screen Neg (NEG) Urine Amphetamine/Methamphetamine Neg (NEG) Urine Benzodiazepines Screen Neg (NEG) Urine Cocaine Screen Neg (NEG) Urine Cannabinoids Screen Neg (NEG) Urine Ethyl Alcohol Neg (NEG) Bedside Urine HCG, Qualitative Hcg negative (Negative) White Blood Count 7.0 x10^3/uL (4.0-11.0) 9.7 x10^3/uL (4.0-11.0) Red Blood Count 4.30 x10^6/uL (3.50-5.40) 4.22 x10^6/uL (3.50-5.40) Hemoglobin 12.0 g/dL (12.0-15.5) 11.9 g/dL (12.0-15.5) Hematocrit 36.7 % (36.0-47.0) 36.1 % (36.0-47.0) Mean Corpuscular Volume 85 fL (79-100) 86 fL (79-100) Mean Corpuscular Hemoglobin 28 pg (25-35) 28 pg (25-35) Mean Corpuscular Hemoglobin Concent 33 g/dL (31-37) 33 g/dL (31-37) Red Cell Distribution Width 14.1 % (11.5-14.5) 13.9 % (11.5-14.5) Platelet Count 198 x10^3/uL (140-400) 182 x10^3/uL (140-400) Neutrophils (%) (Auto) 65 % (31-73) 81 % (31-73) Lymphocytes (%) (Auto) 27 % (24-48) 13 % (24-48) Monocytes (%) (Auto) 6 % (0-9) 5 % (0-9) Eosinophils (%) (Auto) 1 % (0-3) 0 % (0-3) Basophils (%) (Auto) 1 % (0-3) 0 % (0-3) Neutrophils # (Auto) 4.6 x10^3uL (1.8-7.7) 7.9 x10^3uL (1.8-7.7) Lymphocytes # (Auto) 1.9 x10^3/uL (1.0-4.8) 1.3 x10^3/uL (1.0-4.8) Monocytes # (Auto) 0.4 x10^3/uL (0.0-1.1) 0.5 x10^3/uL (0.0-1.1) Eosinophils # (Auto) 0.1 x10^3/uL (0.0-0.7) 0.0 x10^3/uL (0.0-0.7) Basophils # (Auto) 0.1 x10^3/uL (0.0-0.2) 0.0 x10^3/uL (0.0-0.2) Sodium Level 143 mmol/L (136-145) 138 mmol/L (136-145) Potassium Level 3.6 mmol/L (3.5-5.1) 3.6 mmol/L (3.5-5.1) Chloride Level 105 mmol/L (98-107) 103 mmol/L (98-107) Carbon Dioxide Level 22 mmol/L (21-32) 22 mmol/L (21-32) Anion Gap 16 (6-14) 13 (6-14) Blood Urea Nitrogen 9 mg/dL (7-20) 5 mg/dL (7-20) Creatinine 0.7 mg/dL (0.6-1.0) 0.6 mg/dL (0.6-1.0) Estimated GFR (Cockcroft-Gault) 103.7 123.9 BUN/Creatinine Ratio 13 (6-20) Glucose Level 99 mg/dL (70-99) 112 mg/dL (70-99) Calcium Level 8.9 mg/dL (8.5-10.1) 8.5 mg/dL (8.5-10.1) Total Bilirubin 0.2 mg/dL (0.2-1.0) Aspartate Amino Transf (AST/SGOT) 17 U/L (15-37) Alanine Aminotransferase (ALT/SGPT) 31 U/L (14-59) Alkaline Phosphatase 101 U/L (46-116) Total Protein 7.8 g/dL (6.4-8.2) Albumin 3.7 g/dL (3.4-5.0) Albumin/Globulin Ratio 0.9 (1.0-1.7) Lipase 128 U/L (73-393) Ethyl Alcohol Level < 10 mg/dL (0-10) Test 05/31/18 03:30 White Blood Count 8.5 x10^3/uL (4.0-11.0) Red Blood Count 3.79 x10^6/uL (3.50-5.40) Hemoglobin 10.6 g/dL (12.0-15.5) Hematocrit 32.2 % (36.0-47.0) Mean Corpuscular Volume 85 fL (79-100) Mean Corpuscular Hemoglobin 28 pg (25-35) Mean Corpuscular Hemoglobin Concent 33 g/dL (31-37) Red Cell Distribution Width 14.4 % (11.5-14.5) Platelet Count 153 x10^3/uL (140-400) Neutrophils (%) (Auto) 83 % (31-73) Lymphocytes (%) (Auto) 10 % (24-48) Monocytes (%) (Auto) 7 % (0-9) Eosinophils (%) (Auto) 0 % (0-3) Basophils (%) (Auto) 0 % (0-3) Neutrophils # (Auto) 7.1 x10^3uL (1.8-7.7) Lymphocytes # (Auto) 0.9 x10^3/uL (1.0-4.8) Monocytes # (Auto) 0.6 x10^3/uL (0.0-1.1) Eosinophils # (Auto) 0.0 x10^3/uL (0.0-0.7) Basophils # (Auto) 0.0 x10^3/uL (0.0-0.2) Total Bilirubin 0.4 mg/dL (0.2-1.0) Direct Bilirubin 0.1 mg/dL (0.0-0.2) Aspartate Amino Transf (AST/SGOT) 60 U/L (15-37) Alanine Aminotransferase (ALT/SGPT) 86 U/L (14-59) Alkaline Phosphatase 76 U/L (46-116) Total Protein 6.8 g/dL (6.4-8.2) Albumin 2.9 g/dL (3.4-5.0) Laboratory Tests Test 05/31/18 03:30 White Blood Count 8.5 x10^3/uL (4.0-11.0) Red Blood Count 3.79 x10^6/uL (3.50-5.40) Hemoglobin 10.6 g/dL (12.0-15.5) Hematocrit 32.2 % (36.0-47.0) Mean Corpuscular Volume 85 fL (79-100) Mean Corpuscular Hemoglobin 28 pg (25-35) Mean Corpuscular Hemoglobin Concent 33 g/dL (31-37) Red Cell Distribution Width 14.4 % (11.5-14.5) Platelet Count 153 x10^3/uL (140-400) Neutrophils (%) (Auto) 83 % (31-73) Lymphocytes (%) (Auto) 10 % (24-48) Monocytes (%) (Auto) 7 % (0-9) Eosinophils (%) (Auto) 0 % (0-3) Basophils (%) (Auto) 0 % (0-3) Neutrophils # (Auto) 7.1 x10^3uL (1.8-7.7) Lymphocytes # (Auto) 0.9 x10^3/uL (1.0-4.8) Monocytes # (Auto) 0.6 x10^3/uL (0.0-1.1) Eosinophils # (Auto) 0.0 x10^3/uL (0.0-0.7) Basophils # (Auto) 0.0 x10^3/uL (0.0-0.2) Total Bilirubin 0.4 mg/dL (0.2-1.0) Direct Bilirubin 0.1 mg/dL (0.0-0.2) Aspartate Amino Transf (AST/SGOT) 60 U/L (15-37) Alanine Aminotransferase (ALT/SGPT) 86 U/L (14-59) Alkaline Phosphatase 76 U/L (46-116) Total Protein 6.8 g/dL (6.4-8.2) Albumin 2.9 g/dL (3.4-5.0) Brief Hospital Course Ms. Hollis is a 23 old obese female admitted because of symptomatic cholelithiasis underwent lap cholecystectomy with no indwelling GEORGE drain. Postop remarkable for some pain needed two Lortabs. She got better after 2 lortabs so we are sending her home with 10 mg Lortabs in follow-up GS as instructed Procedures performed lap cholecystectomy Discharge Information Condition at Discharge: Improved, Stable Follow Up: Weeks (2 weeks GS) Disposition/Orders: D/C to Home STEVE NAVA MD May 31, 2018 12:05
--- NOTE | 2018-05-31 13:01 | NUR ---
SW following. Discussed with RN, pt in pain today. SW met with pt to give self pay resource packet. Pt denied any further SW needs at this time. RN advised pt is discharging home with self care today.
--- NOTE | 2018-05-31 13:57 | NUR ---
Pt was discharged to home at 1310 today in stable condition with all personal belongings after reviewing all pertinent information including education, medications, follow up and at home care. Pt was escorted by staff and driven home by her sister.
--- NOTE | 2018-05-31 16:07 | PATHOLOGY ---
[facility] Accession Number: [id number] . 01 Material submitted: . gallbladder - GALLBLADDER . 01 Clinical history: . Cholelithiasis . 02 Diagnosis: Gallbladder, laparoscopic cholecystectomy: - Cholelithiasis. - Cholesterolosis. - Acute and chronic cholecystitis with focally increased eosinophils. - Reactive changes of gallbladder neck lymph node. . (JPM:mm; 05/31/2018) [facility]/05/31/2018 . 02 Comment: There is no evidence of malignancy. . (JPM:mm; 05/31/2018) . 02 Electronically signed: . Victor M Barnett MD, Pathologist NPI- [id number] . 01 Gross description: . The specimen is received in formalin, labeled "Hollis, [place], gallbladder" and consists of an intact, pink-roa, and hemorrhagic gallbladder measuring 9.8 cm in length and up to 4.0 cm in diameter. The margin is inked black. Opening reveals the lumen is filled with mucoid pink-red fluid and 2 green-brown smooth calculi which grossly occlude the neck. The calculi measure 1.2 and 1.8 cm. The mucosa is pink-red with yellow streaks and a wall ranging from 0.1-0.2 cm. No masses are identified. Adjacent to the gallbladder neck is a lymph node candidate measuring 0.8 x 0.6 cm. Housing Management Representative sections are submitted in A1-A2. (SDY; 05/30/2018) SYU/SYU . 02 Pathologist provided ICD-10: K80.12, K82.4 . 02 CPT . 955001 Specimen Comment: A courtesy copy of this report has been sent to Specimen Comment: [phone], , . Specimen Comment: Report sent to ,DR DVEI / DR MATSON Performed at: [address] [id number] MD Ross Koch MD Phone: [phone] Performed at: 02 [facility] [address] [place], [place] [id number] MD Victor M Barnett MD Phone: [phone]
== END 2018-05-31 13:10 | disposition home or self-care (01) | DRG 412 ==
LOC: ER 14:33 → ED HOLD 16:26 → 4 NORTH 19:26
PROVIDERS: ADMIT Internal Medicine; ATTEND Internal Medicine
PROC: BF101ZZ Fluoroscopy of Bile Ducts using Low Osmolar Contrast (ICD-10-PCS; 2018-05-30)
PROC: 0FJB4ZZ Inspection of Hepatobiliary Duct, Percutaneous Endoscopic Approach (ICD-10-PCS; 2018-05-30)
PROC: 0FT44ZZ Resection of Gallbladder, Percutaneous Endoscopic Approach (ICD-10-PCS; principal; 2018-05-30 10:30)
DX: K80.65 Calculus of gallbladder and bile duct with chronic cholecystitis with obstruction (principal); Z68.41 Body mass index [BMI] 40.0-44.9, adult; E66.01 Morbid (severe) obesity due to excess calories; K76.0 Fatty (change of) liver, not elsewhere classified; Z79.899 Other long term (current) drug therapy; Z88.8 Allergy status to other drugs, medicaments and biological substances
CPT/HCPCS: 36415; 74300; 76705; 80048; 80053; 80076; 80307; 81001; 81025; 83690; 85025; 87086; 88304; 94640; 96374; 96375; 96376; A7015; C1757; C1769; G0480; J0696; J1100; J1170; J1644; J1885; J2001; J2060; J2250; J2270; J2405; J2704; J2710; J3010; J3490; J7030; J7620; Q9967; 99285-25

== ENCOUNTER 2018-07-22 17:12 | Emergency (ER) | payer MEDICAID, SELFPAY ==
[~2018-07-22] VITALS: Ht 154.9 cm; Wt 90.7 kg
[2018-07-22 17:43] VITALS: BP 141/82
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
[2018-07-22] MEDS ORDERED: IBUPROFEN 400 MG TABLET. PO ONE (19:00)
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
== END 2018-07-22 19:55 | disposition home or self-care (01) ==
LOC: ER 17:12
DX: S66.912A Strain of unspecified muscle, fascia and tendon at wrist and hand level, left hand, initial encounter (principal); Z88.1 Allergy status to other antibiotic agents; V49.59XA Passenger injured in collision with other motor vehicles in traffic accident, initial encounter; Y93.89 Activity, other specified; Y92.488 Other paved roadways as the place of occurrence of the external cause; Y99.8 Other external cause status
CPT/HCPCS: 73130; 99284